=== PATIENT | male | born 1955 | race Caucasian/White ===

== ENCOUNTER 2020-09-20 20:31 | Inpatient (IN) | payer OTHER, SELFPAY ==
--- NOTE | ~2020-09-20 | XR_ITS ---
EXAMINATION: XR chest 1V portable DATE: 09/25/2020 15:47 INDICATION: Increased oxygen requirement. TECHNIQUE: A single frontal view of the chest was obtained. COMPARISON: Chest single view 09/20/2020, chest CT 09/20/2020 FINDINGS: There are lucencies in the lungs, consistent with emphysema. There is a diffuse heterogeneo us interstitial pattern in the lungs with interval improvement. No pleural effusion or pneumothorax. The heart size is normal. There are suture anchors in left humeral head. There is a total right shoul anisa arthroplasty. IMPRESSION: 1. Diffuse lung disease with interval improvement, consistent with pulmonary edema versus pneumonia s uperimposed on emphysema. Reviewed, dictated and finalized at location A. L FITTER IMPRESSION: 1. Diffuse lung disease with interval improvement, consistent with pulmonary ed erika versus pneumonia superimposed on emphysema.
--- NOTE | ~2020-09-20 | CT_ITS ---
EXAMINATION: CTA chest PE protocol DATE: 09/20/2020 23:18 INDICATION: Chest pain TECHNIQUE: Computed tomography angiography (CTA) of the chest was performed with 100 mL Omnipaque-350 intravenous contrast timed to evaluate the pulmonary arteries. Coronal maximum intensity projection 3D-reconstructions were created by the technologist. The dose-length product (DLP) was 426.60 mGy-cm. Automated exposure control and iterative reconstruction technique were employed. COMPARISON: None. FINDINGS: The pulmonary arteries are well-opacified. No pulmonary embolism is identified. There is se sylwia emphysema. There are areas of subpleural honeycombing with a lower lung zone predominance. Patch y airspace opacities are also present in the lungs. There is no pleural effusion or pneumothorax. The heart size is normal. There is mediastinal and bilateral hilar lymphadenopathy. There is moderate th oracic spondylosis. Severe lumbar spondylosis is noted. There are changes of right total shoulder art hroplasty. Suture anchors are noted in the left humeral head. IMPRESSION: 1. No pulmonary embolism. 2. Severe emphysema. 3. Chronic interstitial lung disease in a pattern of usual interstitial pneumonia in the lung bases. 4. Patchy airspace opacities of the lungs which could reflect superimposed pneumonia. 5. Mediastinal and bilateral hilar lymphadenopathy, likely reactive. Reviewed, dictated and finalized at location A. ER OPERATOR IMPRESSION: 1. No pulmonary embolism. 2. Severe emphysema. 3. Chronic interstitial lung disease in a pattern of usual interstitial pneumon ia in the lung bases. 4. Patchy airspace opacities of the lungs which could reflect superimposed pneu monia. 5. Mediastinal and bilateral hilar lymphadenopathy, likely reactive.
--- NOTE | ~2020-09-20 | XR_ITS ---
EXAMINATION: XR chest 1V portable INDICATION: Shortness of breath, COVID 19 TECHNIQUE: Portable AP chest at 2139 hours COMPARISON: 01/26/2011 FINDINGS: There are opacities of the mid and lower lung zone and the left upper lung zone. No pleural effusion or pneumothorax is identified. Lucencies in the right lung apex may reflect emphysema. The cardiomediastinal silhouette is normal. There are changes of right total shoulder arthroplasty. Sutur e anchors are noted in the left humeral head. IMPRESSION: 1. Opacities of the mid and lower lung zones and left upper lung zone consistent with pneumonia and/o r pulmonary edema.. Reviewed, dictated and finalized at location A. G MACHINE OPERATOR LUMBER IMPRESSION: 1. Opacities of the mid and lower lung zones and left upper lung zone consisten t with pneumonia and/or pulmonary edema..
--- NOTE | ~2020-09-20 | XR_ITS ---
EXAMINATION: XR chest 1V portable EXAM DATE: 09/28/2020 06:28 INDICATION: Shortness of breath. COVID pneumonia. TECHNIQUE: Portable AP frontal chest x-ray was obtained. Comparison is made to prior examination from 09/25/2020. FINDINGS: There is diffuse abnormal reticulation, partly patients extensive interstitial lung disease , however this does appear more pronounced than prior study, could be some superimposed acute infecti on. There is no pneumothorax suspected. There are no pleural effusions. Cardiomediastinal silhouette is normal. Surgical changes to both shoulders with right hip replacement and left rotator cuff repair anchors. IMPRESSION: Mild progression in abnormal reticulation likely acute infection superimposed on chronic interstitial lung disease. Reviewed, dictated and finalized at location A. SPECIAL EDUCATION TEACHER IMPRESSION: Mild progression in abnormal reticulation likely acute infection lechuga perimposed on chronic interstitial lung disease.
[2020-09-20 20:36] VITALS: BP 90/50; PULSE 103; RESP 28; TEMP 37.9; O2SAT 85
--- NOTE | 2020-09-20 20:42 | PC.NURSE ---
pt placed on 2l 02 nc which brought his o2 to 88, pt then placed on 4L o2 at 92%
[2020-09-20 20:45] VITALS: O2SAT 90
--- NOTE | 2020-09-20 20:54 | ECG_ITS ---
Measurements Intervals [place] Rate: 71 P: 18 MN: 176 QRS: 31 QRSD: 93 T: -8 QT: 497 QTc: 544 Interpretive Statements SINUS RHYTHM FREQUENT VENTRICULAR PREMATURE COMPLEXES BORDERLINE R WAVE PROGRESSION, ANTERIOR LEADS BASELINE ARTIFACT- I, III, AVL ABNORMAL ECG Electronically Signed On 09-21-2020 7:15:14 DIE REAMER by Hesham Atkins D.O.
--- NOTE | 2020-09-20 20:55 | ED.SOB ---
HPI - SOB/Dyspnea General Chief Complaint: Shortness of Breath/Dyspnea Stated Complaint: Shortness of breath, Covid-19+ Time Seen by Provider: 09/20/20 20:46 Source: patient Mode of arrival: EMS Limitations: no limitations History of Present Illness HPI Narrative: This patient is a 64 year old male former smoker with history of COPD and recent COVID positive test who presents for evaluation weakness and shortness breath. He states he developed symptoms of weakness, nausea, vomiting on 09/12/20. He was tested for covid on 09/13/20 and he was found to be positive along with other inmates. He reports continued weakness, nausea. He also reports constant headache and shortness of breath. He reports intermittent chest pain and it is worse with he tries to breath in. He states he has not been started on any medication for his treatment. MD elicited complaint: shortness of breath Related Data Allergies Allergy/AdvReac Type Severity Reaction Status Date / Time Penicillins Allergy Unknown Verified 02/12/11 16:12 Review of Systems Review of Systems: All systems reviewed & are unremarkable except as noted in HPI and below Constitutional: Constitutional: Reports chills and Reports fever(s) Cardiovascular: Cardiovascular: Reports chest pain Respiratory: Respiratory: Reports cough and Reports dyspnea Gastrointestinal: Gastrointestinal: Denies abdominal pain, Denies diarrhea, Reports nausea and Reports vomiting Neurologic: Reports headache(s) [facility] Past Medical History Medical History (Updated 09/21/20 @ 00:18 by Zaida Burns MD) COPD (chronic obstructive pulmonary disease) Diverticulitis Surgical History Surgical History (Updated 09/20/20 @ 21:01 by Zaida Burns MD) H/O colectomy Family History Family History (Updated 03/29/16 @ 23:19 by DOCTOR UNKNOWN) Father Family history of malignant neoplasm Mother Family history of diabetes mellitus in first degree relative Family history of heart disease in male family member before age 55 Social History Social History (Updated 09/20/20 @ 21:01 by Zaida Burns MD) Smoking status: Former smoker Alcohol intake: current Exam Const: General: no acute distress, alert and ill appearing Orientation/consciousness: patient oriented x3 HENMT: Head: normocephalic and atraumatic Face and sinus: face symmetric Mouth: Yes Normal oral and palatal mucosa present, Yes lip normal, Yes oropharynx normal and Yes moist mucous membranes Throat: posterior oropharynx normal Eyes: Pupils: Equal, round and reactive pupils present EOM: EOMs intact bilaterally Resp: Effort & Inspection: normal respiratory effort and no retractions Auscultation: clear to auscultation bilaterally Cardio: Rate: regular rate Rhythm: regular rhythm Heart sounds: no murmurs GI: GI Palp: Yes Soft to palpation, No Tenderness to palpation present (GI) and No Guarding due to palpation present (GI) Auscultation: normal bowel sounds Skin: General skin exam: normal color Rashes: no rashes Neuro: General: patient oriented x3 and moves all extremities Psych: Mental Status: mental status grossly normal Affect: normal affect Course Reevaluation(s) Reevaluation #1: I discussed with Dr. Thornton patient case. I discussed patient is on 7 L High flow NC without respiratory distress. I also discussed patient's BP initially in low 90s but it is now 112/81 and 103/72 after IV hydration. He seems to be responding to fluids now. I discussed admission to IMU. He states if patient able to maintain BP it is okay to admit to medical floor. They will monitor and it needs to be upgraded he will. Patient is resting comfortable sleeping with 94% Date: 09/21/20 Time: 00:12 Vital Signs Vital signs: Vital Signs Temperature 100.3 F H 09/20/20 20:36 Pulse Rate 103 H 09/20/20 20:36 Respiratory Rate 28 H 09/20/20 20:36 Blood Pressure 90/50 L 09/20/20 20:36 Pulse Oximetry 85 L 09/20/20 20:36
[2020-09-20] MEDS: ALBUTEROL SULFATE (*SP) AEROSOL 1 PUFF 6 PUFF INHALATION (21:10)
[2020-09-20] MEDS: ONDANSETRON INJ 4 MG/2 ML VIAL IV PUSH (21:14)
[2020-09-20] MEDS: SODIUM CHLORIDE 0.9% IV 1,000 ML 999 ML IV CONT ×3 (21:14→23:46)
[2020-09-20 21:23] LABS: Alveolar/Arterial O2 Gradient 160.6 mmHg; Base Excess ABG 1.3 mEq/l (+/-2.0); Device NASAL CANNULA; Fractional Inspired Oxygen 36 %; HCO3 ABG 23.7 mEq/l (22.0-26.0); Methemoglobin ABG 0.2 %THb (0-1.5); Modified Allen's Test Pass; Oxygen Content ABG 19.1 %vol (16.0-22.0); Oxyhemoglobin 90.8 % THb (90.0-100.0); PCO2 ABG 31.6 mmHg (35.0-45.0); PO2 ABG 59.4 mmHg (80.0-100.0); PO2 FiO2 Ratio Arterial Blood 1.65 %; Site Drawn RIGHT RADIAL; pH ABG 7.493 (7.350-7.450)
[2020-09-20 21:40] LABS: Basophils Percent Auto 0.3 % (0.2-1.2); Eosinophils Percent Auto 0.1 % (0-4.4); Hematocrit 42.8 % (42.0-52.0); Hemoglobin 14.8 g/dL (14.0-18.0); Immature Granulocyte Absolute 0.15 K/mm3 (0.00-0.031); Immature Granulocyte Percent A 2.2 % (0-0.5); Lymphocytes Absolute Auto 0.82 K/mm3 (0.9-3.2); Lymphocytes Percent Auto 12.1 % (18.3-44.2); Mean Corpuscular HGB Conc 34.6 g/dl (32-36); Mean Corpuscular Hemoglobin 30.6 pg (26-34); Mean Corpuscular Volume 88.4 fl (80-100); Mean Platelet Volume 9.5 fl (7.4-10.4); Monocytes Absolute Auto 0.5 K/mm3 (0.1-0.6); Monocytes Percent Auto 7.4 % (2.6-8.5); Neutrophils Absolute Auto 5.3 K/mm3 (1.3-6.7); Neutrophils Percent Auto 77.9 % (45.5-73.1); Platelet Count Result 254 k/mm3 (150-375); Red Blood Count 4.84 M/mm3 (4.6-6.20); Red Cell Distribution Width 12.2 % (11.5-14.5); White Blood Count 6.8 K/mm3 (4.5-10.0)
[2020-09-20 21:51] LABS: Prothrombin Time 13.4 Seconds (11.1-14.7)
[2020-09-20 21:52] LABS: Partial Thromboplastin Time 32.5 SECONDS (22.3-36.8)
[2020-09-20 21:55] LABS: D Dimer 1.32 ug/mL (<0.48)
[2020-09-20 21:56] LABS: Alanine Aminotransferase 15 U/L (4-50); Albumin Level 3.4 g/dL (3.5-5.1); Alkaline Phosphatase 71 U/L (38-126); Anion Gap 6 mmol/L (8-16); Aspartate Amino Transferase 39 U/L (17-59); Bilirubin,Total 0.6 mg/dL (0.2-1.3); Blood Urea Nitrogen 12 mg/dL (9-20); Carbon Dioxide 28 mmol/L (22-30); Chloride 101 mmol/L (98-107); Estimated CRCL calculation 90 ml/min; Estimated Glomerular Filt Rate > 60; Glucose 111 mg/dL (75-110); Potassium 3.6 mmol/L (3.4-5.0); Sodium 135 mmol/L (137-145)
[2020-09-20 22:04] LABS: Troponin I < 0.012 ng/mL (0.000-0.034)
[2020-09-20 22:06] VITALS: BP 102/72; PULSE 98; RESP 22; O2SAT 92
[2020-09-20 22:07] LABS: CRP 12.9 mg/dL (<1.0)
[2020-09-20 22:46] LABS: Lactic Acid Reflex 1.4 mmol/L (0.7-2.1)
[2020-09-20] MEDS: DEXAMETHASONE SOD PHOS INJ 4 MG/ML VIAL 6 MG IV PUSH (22:49)
[2020-09-20] MEDS: SODIUM CHLORIDE 0.9% IV 500 ML 999 ML IV CONT (22:49)
[2020-09-20 22:57] VITALS: O2SAT 92
[2020-09-20 23:42] VITALS: O2SAT 94
[2020-09-21] VITALS (11 sets, daily range): BP systolic 103–121; BP diastolic 72–81; PULSE 74–110; RESP 16–23; TEMP 36.2–37.2; O2SAT 85–96; BMI 26.7
[2020-09-21 00:17] LABS: Add Urine Microscopic? YES; Appearance Urine Clear (Clear); Bacteria Urine Trace /hpf; Bilirubin Urine Negative (Negative); Blood Urine 1+ (Negative); Color Urine Yellow (Yellow); Glucose Urine UA Negative (Negative); Ketones Urine 1+ mg/dL (Negative); Leukocyte Esterase Ur Negative LEU/UL (Negative); Nitrate Urine Negative (Negative); Protein Urine 2+ mg/dL (Negative); RBC Urine 0-2 /hpf (0-2); WBC Urine 0-3 /hpf
[2020-09-21 00:18] LABS: Specific Grav Ur 1.045 (1.001-1.035)
--- NOTE | 2020-09-21 00:49 | PC.NURSE ---
Attempted to call report, floor rn will call me back shortly
[2020-09-21] MEDS: SODIUM CHLORIDE 0.9% IV 1,000 ML 125 ML IV CONT ×3 (01:25→20:40)
--- NOTE | 2020-09-21 01:25 | PC.NURSE ---
This patient, Aaron Fletcher, was admitted to 3 [facility] Surg Room 327-01. Patient/family oriented to hospital policies and general routines including ID bracelet, bed and alarms, visiting hours, pain management, procedures, bathroom and other care routines, personal items, smoking policy, room service/diet, and visiting hours. Information on how to activate the Rapid Response Team has been discussed. Patient/Family are encouraged to report perceived risks to care and to ask questions if they do not understand what they are told or what they should do.
[2020-09-21] MEDS: REMDESIVIR 200 MG/NS 250 ML 200 MG/250 ML BAG 250 MG IVPB (01:49)
--- NOTE | 2020-09-21 03:28 | PM.IMHP ---
H&P: HPI History of Present Illness Date/Time: 09/21/20 03:28 Chief Complaint: shortness of breath Narrative: This is a 64 year old male with known COPD who was brought from [facility] to the ER for generalized weakness and increased shortness of breath. The patient tested postive for COVID-19 on 09/13/2020. Associated symptoms include intermittent fever, chills, nasuea, vomiting, and productive cough of blood tinged sputum. The patient was evaluated in the ER [facility] and was placed on 7L of high flow oxygen to maintain his pulse oximetry. He was also found to be hypotensive and was given 4L of NS IV bolus. CTA Chest was performed which demonstrated patchy airspace opacities of the lungs. The patient was also treated with bronchodilators, decadron and Remdesivir. On my encounter with the patient [facility] he is complaining of fatigue and shortness of breath. He denies any chest pain, nausea, abdominal pain, dysuria, hematuria, diarrhea or rectal bleeding. He did report that he hasn't had a bowel movement in almost two weeks. No other complaints. Review of Systems Review of Systems: All systems reviewed & are unremarkable except as noted in HPI and below PMFSH Past Medical History Medical History (Updated 09/21/20 @ 03:49 by Dayne Thornton MD) COPD (chronic obstructive pulmonary disease) Diverticulitis Surgical History Surgical History H/O colectomy Family History Family History Father Family history of malignant neoplasm Mother Family history of diabetes mellitus in first degree relative Family history of heart disease in male family member before age 55 Social History Social History Smoking packs per day: 1 Smoking cigarettes per day: 20.0 Years smoked: 30 Smoking pack-years: 30.00 Smoking status: Former smoker Tobacco type: cigarettes Smoking end date: 04/05/20 Alcohol intake: former Substance use: never Gender identity (if verbalized by the patient): Male Spiritual care concerns: No Meds Home Medications and Allergies Home Medications Medication Instructions Recorded Confirmed Type No Home Medications 09/21/20 09/21/20 History Allergies Allergy/AdvReac Type Severity Reaction Status Date / Time No Known Allergies Allergy Verified 09/21/20 02:16 Vital Signs Vital Signs - 24 hr 09/20/20 20:36 09/20/20 20:45 09/20/20 22:06 Temperature 37.9 C H Pulse Rate 103 H 98 Respiratory Rate 28 H 22 H Blood Pressure 90/50 L 102/72 Pulse Oximetry 85 L 90 92 09/20/20 22:57 09/20/20 23:42 09/21/20 00:06 Temperature Pulse Rate 95 Respiratory Rate 23 H Blood Pressure 112/81 Pulse Oximetry 92 94 96 09/21/20 00:45 09/21/20 01:13 09/21/20 01:25 Temperature 37.2 C 36.3 C L Pulse Rate 86 86 87 Respiratory Rate 20 19 20 Blood Pressure 106/74 103/77 121/79 Pulse Oximetry 94 93 96 09/21/20 02:00 Temperature Pulse Rate Respiratory Rate Blood Pressure Pulse Oximetry 91 Exam Const: General: cooperative, no acute distress, alert, awake, tired appearing and uncomfortable Nutritional Appearance: well nourished Orientation/consciousness: patient oriented x3 HENMT: Head: normal to inspection General nose exam: Normal external nose present Face and sinus: normal facial exam Mouth: Yes Normal oral and palatal mucosa present and Yes oropharynx normal Eyes: Pupils: Equal, round and reactive pupils present EOM: EOMs intact bilaterally Neck: Neck: supple and no JVD Thyroid: thyroid normal Lymphatic: lymphadenopathy not noted Resp: Effort & Inspection: tachypneic Auscultation: rales (bibasilar+) bilateral and diminished lung sounds Cardio: Rate: regular rate Rhythm: regular rhythm Heart sounds: no murmurs GI: Inspection: normal to inspection Auscultation: normal bowel so
[2020-09-21] MEDS: polyethylene glycoL 3350 17 GM POWD.PACK PO (05:59)
[2020-09-21] MEDS: DEXAMETHASONE SOD PHOS INJ 4 MG/ML VIAL 6 MG IV PUSH (08:40)
[2020-09-21] MEDS: ALBUTEROL SULFATE (*SP) AEROSOL 1 PUFF 6 PUFF INHALATION ×4 (08:41→20:41)
[2020-09-21 10:13] LABS: Alanine Aminotransferase 18 U/L (4-50)
--- NOTE | 2020-09-21 10:21 | PC.NURSE ---
Patient is an inmate from correctional facility. Patient's right foot and right hand are handcuffed to bed rails. Circulation checks performed by this RN. 2 armed guards outside of patient's door.
--- NOTE | 2020-09-21 12:31 | PC.NURSE ---
Parmjit Gold discussed policies with police staff. Per police protocol, they do not release handcuffs unless requested by medical staff. No telephones in room unless needed for direct care.
[2020-09-21] MEDS: REMDESIVIR 100 MG/NS 250 ML 100 MG/250 ML BAG 250 MG IVPB (20:41)
[2020-09-22] VITALS (8 sets, daily range): BP systolic 107–120; BP diastolic 70–76; PULSE 74–92; RESP 18–20; TEMP 36.5–36.8; O2SAT 90–98
[2020-09-22] MEDS: SODIUM CHLORIDE 0.9% IV 1,000 ML 125 ML IV CONT ×2 (05:13→14:25)
[2020-09-22 06:37] LABS: Basophils Percent Auto 0.3 % (0.2-1.2); Hematocrit 39.2 % (42.0-52.0); Hemoglobin 13.2 g/dL (14.0-18.0); Immature Granulocyte Absolute 0.25 K/mm3 (0.00-0.031); Immature Granulocyte Percent A 2.2 % (0-0.5); Lymphocytes Percent Auto 5.2 % (18.3-44.2); Mean Corpuscular HGB Conc 33.7 g/dl (32-36); Mean Corpuscular Hemoglobin 29.4 pg (26-34); Mean Corpuscular Volume 87.3 fl (80-100); Mean Platelet Volume 9.6 fl (7.4-10.4); Monocytes Absolute Auto 0.8 K/mm3 (0.1-0.6); Monocytes Percent Auto 6.8 % (2.6-8.5); Neutrophils Absolute Auto 9.9 K/mm3 (1.3-6.7); Neutrophils Percent Auto 85.5 % (45.5-73.1); Platelet Count Result 317 k/mm3 (150-375); Red Blood Count 4.49 M/mm3 (4.6-6.20); Red Cell Distribution Width 12.3 % (11.5-14.5); White Blood Count 11.5 K/mm3 (4.5-10.0)
[2020-09-22 06:49] LABS: Alanine Aminotransferase 15 U/L (4-50); Albumin Level 2.9 g/dL (3.5-5.1); Alkaline Phosphatase 77 U/L (38-126); Anion Gap 2 mmol/L (8-16); Aspartate Amino Transferase 33 U/L (17-59); Bilirubin,Total 0.4 mg/dL (0.2-1.3); Blood Urea Nitrogen 9 mg/dL (9-20); Carbon Dioxide 27 mmol/L (22-30); Chloride 111 mmol/L (98-107); Estimated CRCL calculation 122 ml/min; Estimated Glomerular Filt Rate > 60; Glucose 143 mg/dL (75-110); Potassium 3.8 mmol/L (3.4-5.0); Sodium 140 mmol/L (137-145)
[2020-09-22] MEDS: ALBUTEROL SULFATE (*SP) AEROSOL 1 PUFF 6 PUFF INHALATION ×2 (08:05→13:00)
[2020-09-22] MEDS: guaiFENesin/DEXTROMETHORPHAN 10 ML UDC 5 ML PO (10:15)
[2020-09-22] MEDS: DEXAMETHASONE SOD PHOS INJ 4 MG/ML VIAL 6 MG IV PUSH (10:16)
--- NOTE | 2020-09-22 17:47 | PM.IMPN ---
Progress Note: A&P Assessment and Plan (1) COPD (chronic obstructive pulmonary disease): Qualifiers: COPD type: unspecified COPD Qualified Code(s): J44.9 - Chronic obstructive pulmonary disease, unspecified Code(s): J44.9 - Chronic obstructive pulmonary disease, unspecified Status: Chronic Assessment and Plan: On systemic steroids Albuterol MDI. Continuous pulse ox. (2) Acute respiratory failure with hypoxemia: Code(s): J96.01 - Acute respiratory failure with hypoxia Status: Acute Assessment and Plan: On supplemental O2 O2 Sat in the 90's range. (3) Pneumonia due to COVID-19 virus: Code(s): U07.1 - COVID-19; J12.82 - Pneumonia due to coronavirus disease 2019 Status: Acute Assessment and Plan: Remdesivir + Dexamethasone Improved. (4) Acute dehydration: Code(s): E86.0 - Dehydration Status: Acute Assessment and Plan: Resolved (5) Nausea & vomiting: Code(s): R11.2 - Nausea with vomiting, unspecified Status: Acute Assessment and Plan: Resolved Tolerating PO Subjective Date/time seen: 09/22/20 17:47 I feel better. Review of Systems Review of Systems: Narrative: No complains. Constitutional: Comments: no chills, no fevers. Cardiovascular: Comments: no chest pain, no pnd. Respiratory: Comments: mild sob, some cough. Gastrointestinal: Comments: no n/v/abdominal pain Musculoskeletal: Comments: no muscle ache. Integumentary/Breasts: Comments: no rashes. Neurologic: Comments: no sensory motor deficit. Exam Narrative: Exam Narrative: Lying in bed. Const: General: comfortable, no acute distress, alert, awake and Physically active Nutritional Appearance: thin Orientation/consciousness: patient oriented x3 HENMT: Head: normal to inspection and normocephalic General nose exam: Normal external nose present Face and sinus: normal facial exam Eyes: General: appearance normal, both eyes and all related structures Pupils: Equal, round and reactive pupils present EOM: EOMs intact bilaterally Neck: Neck: no lymphadenopathy, supple and no JVD Resp: Effort & Inspection: able to speak in complete sentences Auscultation: clear to auscultation bilaterally Cardio: Rate: regular rate Rhythm: regular rhythm GI: GI Palp: Yes Soft to palpation and Yes No hepatosplenomegaly present Skin: Rashes: no rashes Neuro: General: patient oriented x3 Cranial nerves: Yes CN's II-XII intact bilaterally and Yes Equal, round and reactive pupils present Cognition (Neuro): normal cognition Speech: normal speech Motor exam (neuro): 5/5 motor strength present throughout Extrem: General: no pedal edema Objective Data Vital Signs Vital Signs: Vital Signs - 24 hr 09/21/20 20:00 09/22/20 00:00 09/22/20 02:51 Temperature 98.7 F 97.7 F Pulse Rate 100 82 Respiratory Rate 20 20 Blood Pressure 111/72 113/72 Pulse Oximetry 93 90 91 09/22/20 04:00 09/22/20 08:00 09/22/20 12:00 Temperature 97.8 F 98.1 F 97.9 F Pulse Rate 74 78 86 Respiratory Rate 18 20 18 Blood Pressure 112/75 120/70 114/72 Pulse Oximetry 93 90 95 09/22/20 16:00 09/22/20 16:15 Temperature 98.1 F Pulse Rate 87 Respiratory Rate 18 Blood Pressure 107/74 Pulse Oximetry 92 92 Intake/Output Intake/Output: Intake & Output 09/19/20 09/20/20 09/21/20 09/22/20 23:59 23:59 23:59 23:59 Intake Total 2600 4230 4820 Output Total 3400 2850 Balance 2600 830 1970 Meds/Results Medications: Active Medications Generic Name Dose Route Start Last Admin Trade Name Freq PRN Reason Stop Dose Admin Albuterol 6 puff 09/21/20 08:00 09/22/20 13:00 Albuterol Sulfate (*Sp) Aerosol 1 Puff INHALATION 6 puff QIDRT CLAUDIA Administration Dexamethasone Sodium Phosphate 6 mg 09/21/20 09:00 09/22/20 10:16 Dexamethasone Sod Phos Inj 4 Mg/Ml Vial IV PUSH 09/30/20 09:01 6 mg DAILY CLAUDIA Administration Guaifenesin/Dextrometh
[2020-09-22] MEDS: REMDESIVIR 100 MG/NS 250 ML 100 MG/250 ML BAG 250 MG IVPB (21:40)
[2020-09-23] VITALS (8 sets, daily range): BP systolic 112–122; BP diastolic 67–82; PULSE 61–87; RESP 18–20; TEMP 36.3–36.9; O2SAT 90–98
[2020-09-23] MEDS: SODIUM CHLORIDE 0.9% IV 1,000 ML 125 ML IV CONT ×3 (02:28→22:29)
[2020-09-23 07:22] LABS: Alanine Aminotransferase 18 U/L (4-50)
[2020-09-23] MEDS: DEXAMETHASONE SOD PHOS INJ 4 MG/ML VIAL 6 MG IV PUSH (08:02)
[2020-09-23] MEDS: guaiFENesin/DEXTROMETHORPHAN 10 ML UDC 5 ML PO (08:02)
[2020-09-23] MEDS: ALBUTEROL SULFATE (*SP) AEROSOL 1 PUFF 6 PUFF INHALATION ×4 (08:03→22:30)
[2020-09-23 10:17] LABS: Estimated CRCL calculation 122 ml/min; Estimated Glomerular Filt Rate > 60
[2020-09-23 13:37] LABS: Pneumococcal Antigen Urine Not Detected (Not Detected)
[2020-09-23] MEDS: polyethylene glycoL 3350 17 GM POWD.PACK PO (16:39)
[2020-09-23] MEDS: REMDESIVIR 100 MG/NS 250 ML 100 MG/250 ML BAG 250 MG IVPB (22:22)
[2020-09-24] VITALS (7 sets, daily range): BP systolic 105–121; BP diastolic 70–84; PULSE 56–86; RESP 18–22; TEMP 36.3–36.6; O2SAT 92–97
[2020-09-24 07:21] LABS: Estimated CRCL calculation 104 ml/min; Estimated Glomerular Filt Rate > 60
[2020-09-24 07:43] LABS: Alanine Aminotransferase 34 U/L (4-50)
[2020-09-24] MEDS: guaiFENesin/DEXTROMETHORPHAN 10 ML UDC 5 ML PO (09:08)
[2020-09-24] MEDS: SODIUM CHLORIDE 0.9% IV 1,000 ML 125 ML IV CONT ×2 (09:09→20:30)
[2020-09-24] MEDS: DEXAMETHASONE SOD PHOS INJ 4 MG/ML VIAL 6 MG IV PUSH (09:09)
[2020-09-24] MEDS: MAGNESIUM CITRATE 300 ML BTL 150 ML PO (09:09)
[2020-09-24] MEDS: ALBUTEROL SULFATE (*SP) AEROSOL 1 PUFF 6 PUFF INHALATION ×4 (09:10→20:31)
--- NOTE | 2020-09-24 15:37 | PM.IMPN ---
Progress Note: A&P Assessment and Plan (1) COPD (chronic obstructive pulmonary disease): Qualifiers: COPD type: unspecified COPD Qualified Code(s): J44.9 - Chronic obstructive pulmonary disease, unspecified Code(s): J44.9 - Chronic obstructive pulmonary disease, unspecified Status: Chronic Assessment and Plan: Improved Continue breathing treatments. (2) Acute respiratory failure with hypoxemia: Code(s): J96.01 - Acute respiratory failure with hypoxia Status: Acute Assessment and Plan: Improved Continue supplemental O2 (3) Pneumonia due to COVID-19 virus: Code(s): U07.1 - COVID-19; J12.82 - Pneumonia due to coronavirus disease 2019 Status: Acute Assessment and Plan: To complete Remdesivir (4) Acute dehydration: Code(s): E86.0 - Dehydration Status: Acute Assessment and Plan: Resolved. (5) Nausea & vomiting: Code(s): R11.2 - Nausea with vomiting, unspecified Status: Acute Assessment and Plan: Resolved Tolerating his meals. Subjective Date/time seen: 09/24/20 15:37 Patient seen on 09/23/20 late entry note. Review of Systems Review of Systems: Narrative: No new issues, states that he feels much better. Constitutional: Comments: no fevers, no rigors, no chills. Cardiovascular: Comments: no chest pain. Respiratory: Comments: sob. Gastrointestinal: Comments: no n/v/abdominal pain. Musculoskeletal: Comments: no muscle weakness. Integumentary/Breasts: Comments: no rashes. Neurologic: Comments: no sensory motor deficit. Exam Narrative: Exam Narrative: Lying in bed Const: General: comfortable, no acute distress, alert, awake and Physically active Nutritional Appearance: well nourished Orientation/consciousness: patient oriented x3 HENMT: Head: normal to inspection and normocephalic Face and sinus: normal facial exam Eyes: General: appearance normal, both eyes and all related structures Pupils: Equal, round and reactive pupils present EOM: EOMs intact bilaterally Neck: Neck: supple and no JVD Resp: Auscultation: clear to auscultation bilaterally Cardio: Rate: regular rate Rhythm: regular rhythm GI: GI Palp: Yes Soft to palpation and Yes No hepatosplenomegaly present Neuro: General: patient oriented x3 Cranial nerves: Yes CN's II-XII intact bilaterally Cognition (Neuro): normal cognition Speech: normal speech Gait exam (Neuro): Normal gait present Motor exam (neuro): 5/5 motor strength present throughout Extrem: General: no pedal edema Objective Data Vital Signs Vital Signs: Vital Signs - 24 hr 09/23/20 16:00 09/23/20 20:00 09/23/20 22:45 Temperature 97.5 F L 97.4 F L Pulse Rate 76 68 68 Respiratory Rate 20 20 Blood Pressure 112/71 122/67 Pulse Oximetry 94 98 93 09/24/20 00:00 09/24/20 04:00 09/24/20 08:00 Temperature 97.3 F L 97.4 F L Pulse Rate 77 60 Respiratory Rate 22 H 22 H Blood Pressure 105/70 114/81 Pulse Oximetry 93 96 92 09/24/20 08:05 09/24/20 12:00 Temperature 97.7 F 97.6 F Pulse Rate 56 L 75 Respiratory Rate 18 18 Blood Pressure 121/78 113/75 Pulse Oximetry 94 97 Intake/Output Intake/Output: Intake & Output 09/21/20 09/22/20 09/23/20 09/24/20 23:59 23:59 23:59 23:59 Intake Total 4480 6430 4510 1640 Output Total 3400 2850 4000 800 Balance 1080 3580 510 840 Meds/Results Medications: Active Medications Generic Name Dose Route Start Last Admin Trade Name Freq PRN Reason Stop Dose Admin Albuterol 6 puff 09/21/20 08:00 09/24/20 12:37 Albuterol Sulfate (*Sp) Aerosol 1 Puff INHALATION 6 puff QIDRT CLAUDIA Administration Dexamethasone Sodium Phosphate 6 mg 09/21/20 09:00 09/24/20 09:09 Dexamethasone Sod Phos Inj 4 Mg/Ml Vial IV PUSH 09/30/20 09:01 6 mg DAILY CLAUDIA Administration Guaifenesin/Dextromethorphan 5 ml 09/21/20 03:52 09/24/20 09:08 Guaifenesin/Dextromethorphan 10 Ml Udc PO 5 ml Q4H PRN
--- NOTE | 2020-09-24 15:46 | PM.IMPN ---
Progress Note: A&P Assessment and Plan (1) COPD (chronic obstructive pulmonary disease): Qualifiers: COPD type: unspecified COPD Qualified Code(s): J44.9 - Chronic obstructive pulmonary disease, unspecified Code(s): J44.9 - Chronic obstructive pulmonary disease, unspecified Status: Chronic Assessment and Plan: Improved Continue breathing treatments. (2) Acute respiratory failure with hypoxemia: Code(s): J96.01 - Acute respiratory failure with hypoxia Status: Acute Assessment and Plan: Improved Continue oxygen Wean off (3) Pneumonia due to COVID-19 virus: Code(s): U07.1 - COVID-19; J12.82 - Pneumonia due to coronavirus disease 2019 Status: Acute Assessment and Plan: Complete course of Remdesivir. (4) Acute dehydration: Code(s): E86.0 - Dehydration Status: Acute Assessment and Plan: Resolved (5) Nausea & vomiting: Code(s): R11.2 - Nausea with vomiting, unspecified Status: Acute Assessment and Plan: Resolved Tolerating po. Subjective Date/time seen: 09/24/20 15:46 States that he feels fine. No new issues overnight. Review of Systems Review of Systems: Narrative: No complains Constitutional: Comments: no fevers Cardiovascular: Comments: no chest pain. Respiratory: Comments: some cough. Gastrointestinal: Comments: no n/v/abdominal pain. Musculoskeletal: Comments: no muscle aches. Integumentary/Breasts: Comments: no rashes Neurologic: Comments: no sensory motor deficit. Exam Narrative: Exam Narrative: Lying in bed. Const: General: comfortable, no acute distress, alert, awake and Physically active Nutritional Appearance: well nourished Orientation/consciousness: patient oriented x3 HENMT: Head: normocephalic Ears: hearing grossly normal bilaterally Face and sinus: normal facial exam Neck: Neck: no lymphadenopathy, supple and no JVD Resp: Effort & Inspection: able to speak in complete sentences Auscultation: clear to auscultation bilaterally Cardio: Jugular venous distension: no JVD Rate: regular rate Rhythm: regular rhythm GI: GI Palp: Yes Soft to palpation and Yes No hepatosplenomegaly present Skin: Wounds: no wounds Neuro: General: patient oriented x3 and CN's II-XI intact bilaterally Cranial nerves: Yes CN's II-XII intact bilaterally Cognition (Neuro): normal cognition Speech: normal speech Motor exam (neuro): 5/5 motor strength present throughout Extrem: General: full ROM and no pedal edema Objective Data Vital Signs Vital Signs: Vital Signs - 24 hr 09/23/20 16:00 09/23/20 20:00 09/23/20 22:45 Temperature 97.5 F L 97.4 F L Pulse Rate 76 68 68 Respiratory Rate 20 20 Blood Pressure 112/71 122/67 Pulse Oximetry 94 98 93 09/24/20 00:00 09/24/20 04:00 09/24/20 08:00 Temperature 97.3 F L 97.4 F L Pulse Rate 77 60 Respiratory Rate 22 H 22 H Blood Pressure 105/70 114/81 Pulse Oximetry 93 96 92 09/24/20 08:05 09/24/20 12:00 Temperature 97.7 F 97.6 F Pulse Rate 56 L 75 Respiratory Rate 18 18 Blood Pressure 121/78 113/75 Pulse Oximetry 94 97 Intake/Output Intake/Output: Intake & Output 09/21/20 09/22/20 09/23/20 09/24/20 23:59 23:59 23:59 23:59 Intake Total 4480 6430 4510 1640 Output Total 3400 2850 4000 800 Balance 1080 3580 510 840 Meds/Results Medications: Active Medications Generic Name Dose Route Start Last Admin Trade Name Freq PRN Reason Stop Dose Admin Albuterol 6 puff 09/21/20 08:00 09/24/20 12:37 Albuterol Sulfate (*Sp) Aerosol 1 Puff INHALATION 6 puff QIDRT CLAUDIA Administration Dexamethasone Sodium Phosphate 6 mg 09/21/20 09:00 09/24/20 09:09 Dexamethasone Sod Phos Inj 4 Mg/Ml Vial IV PUSH 09/30/20 09:01 6 mg DAILY CLAUDIA Administration Guaifenesin/Dextromethorphan 5 ml 09/21/20 03:52 09/24/20 09:08 Guaifenesin/Dextromethorphan 10 Ml Udc PO 5 ml Q4H PRN Administration Cough Remdesi
[2020-09-24] MEDS: REMDESIVIR 100 MG/NS 250 ML 100 MG/250 ML BAG 250 MG IVPB (21:12)
[2020-09-25] VITALS (8 sets, daily range): BP systolic 111–130; BP diastolic 59–83; PULSE 68–90; RESP 18–20; TEMP 36.3–36.8; O2SAT 90–97
[2020-09-25] MEDS: SODIUM CHLORIDE 0.9% IV 1,000 ML 125 ML IV CONT ×3 (05:41→23:55)
[2020-09-25 06:34] LABS: Alanine Aminotransferase 41 U/L (4-50); Estimated CRCL calculation 122 ml/min; Estimated Glomerular Filt Rate > 60
[2020-09-25] MEDS: polyethylene glycoL 3350 17 GM POWD.PACK PO (06:43)
[2020-09-25] MEDS: ALBUTEROL SULFATE (*SP) AEROSOL 1 PUFF 6 PUFF INHALATION ×4 (09:08→21:09)
[2020-09-25] MEDS: DEXAMETHASONE SOD PHOS INJ 4 MG/ML VIAL 6 MG IV PUSH (09:09)
--- NOTE | 2020-09-25 14:32 | PM.IMPN ---
Progress Note: A&P Assessment and Plan (1) Pneumonia due to COVID-19 virus: Code(s): U07.1 - COVID-19; J12.82 - Pneumonia due to coronavirus disease 2019 Status: Acute Assessment and Plan: Continue Remdesivir Continue Dexamethasone Breathing treatments. Increased O2 needs Will repeat chest xr (2) COPD (chronic obstructive pulmonary disease): Qualifiers: COPD type: unspecified COPD Qualified Code(s): J44.9 - Chronic obstructive pulmonary disease, unspecified Code(s): J44.9 - Chronic obstructive pulmonary disease, unspecified Status: Chronic Assessment and Plan: Continue breathing treatments. (3) Acute respiratory failure with hypoxemia: Code(s): J96.01 - Acute respiratory failure with hypoxia Status: Acute Assessment and Plan: Worse Increased O2 needs (4) Nausea & vomiting: Code(s): R11.2 - Nausea with vomiting, unspecified Status: Acute Assessment and Plan: Resolved Tolerating po (5) Acute dehydration: Code(s): E86.0 - Dehydration Status: Acute Assessment and Plan: Resolved. Subjective Date/time seen: 09/25/20 14:32 States that feels well. Review of Systems Review of Systems: Narrative: Patient brought to the hospital due to n/v, found to have Covid pneumonia. Has had increased need of oxygen. Constitutional: Comments: no fevers, no chills ENT: Comments: no nasal congestion. Cardiovascular: Comments: no chest pain. Respiratory: Comments: Feels fatigue. Gastrointestinal: Comments: no n/v/abdominal pain. Musculoskeletal: Comments: no muscle aches. Integumentary/Breasts: Comments: no rashes Neurologic: Comments: no sensory motor deficit Exam Narrative: Exam Narrative: Lying in bed Const: General: no acute distress, alert, awake and Physically active Nutritional Appearance: well nourished Orientation/consciousness: patient oriented x3 HENMT: Head: normal to inspection and normocephalic Face and sinus: normal facial exam Eyes: General: appearance normal, both eyes and all related structures Pupils: Equal, round and reactive pupils present EOM: EOMs intact bilaterally Neck: Neck: no lymphadenopathy, supple and no JVD Resp: Auscultation: clear to auscultation bilaterally and diminished lung sounds Cardio: Jugular venous distension: no JVD Rate: regular rate Rhythm: regular rhythm GI: GI Palp: Yes Soft to palpation and Yes No hepatosplenomegaly present Skin: Lesions: no lesions Rashes: no rashes Wounds: no wounds Neuro: General: patient oriented x3 and CN's II-XI intact bilaterally Cranial nerves: Yes CN's II-XII intact bilaterally and Yes Equal, round and reactive pupils present Cognition (Neuro): normal cognition Motor exam (neuro): 5/5 motor strength present throughout Extrem: General: no pedal edema Objective Data Vital Signs Vital Signs: Vital Signs - 24 hr 09/24/20 16:10 09/24/20 20:00 09/25/20 00:00 Temperature 97.9 F 97.5 F L 97.7 F Pulse Rate 86 74 72 Respiratory Rate 20 20 20 Blood Pressure 114/84 119/70 116/76 Pulse Oximetry 95 93 92 09/25/20 04:00 09/25/20 07:02 09/25/20 08:00 Temperature 97.3 F L 97.6 F Pulse Rate 69 75 Respiratory Rate 20 18 Blood Pressure 111/81 130/81 Pulse Oximetry 92 94 92 09/25/20 12:00 09/25/20 13:35 Temperature 97.4 F L Pulse Rate 68 Respiratory Rate 18 Blood Pressure 117/83 Pulse Oximetry 95 90 Intake/Output Intake/Output: Intake & Output 09/22/20 09/23/20 09/24/20 09/25/20 23:59 23:59 23:59 23:59 Intake Total 6430 4760 4160 1930 Output Total 2850 4000 2950 1400 Balance 3580 760 1210 530 Meds/Results Medications: Active Medications Generic Name Dose Route Start Last Admin Trade Name Freq PRN Reason Stop Dose Admin Albuterol 6 puff 09/21/20 08:00 09/25/20 13:35 Albuterol Sulfate (*Sp) Aerosol 1 Puff INHALATION 6 puff QIDRT CLAUDIA Administration Dexamethasone Sodium Ph
[2020-09-25] MEDS: MAGNESIUM CITRATE 300 ML BTL 150 ML PO (21:06)
[2020-09-25] MEDS: REMDESIVIR 100 MG/NS 250 ML 100 MG/250 ML BAG 250 MG IVPB (21:07)
[2020-09-26] VITALS (9 sets, daily range): BP systolic 92–114; BP diastolic 61–78; PULSE 70–84; RESP 18–22; TEMP 36.1–36.8; O2SAT 90–96
[2020-09-26] MEDS: polyethylene glycoL 3350 17 GM POWD.PACK PO (05:35)
[2020-09-26 06:21] LABS: Estimated CRCL calculation 104 ml/min; Estimated Glomerular Filt Rate > 60
[2020-09-26] MEDS: ALBUTEROL SULFATE (*SP) AEROSOL 1 PUFF 6 PUFF INHALATION ×4 (09:04→20:30)
[2020-09-26] MEDS: SODIUM CHLORIDE 0.9% IV 1,000 ML 125 ML IV CONT ×2 (09:05→19:02)
[2020-09-26] MEDS: DEXAMETHASONE SOD PHOS INJ 4 MG/ML VIAL 6 MG IV PUSH (09:06)
[2020-09-26] MEDS: ONDANSETRON INJ 4 MG/2 ML VIAL IV PUSH (11:28)
--- NOTE | 2020-09-26 16:39 | PM.IMPN ---
Progress Note: A&P Assessment and Plan (1) Pneumonia due to COVID-19 virus: Code(s): U07.1 - COVID-19; J12.82 - Pneumonia due to coronavirus disease 2019 Status: Acute Assessment and Plan: Continue Remdesivir Continue Dexamethasone Breathing treatments. try to wean off oxygen , rpt CXr josue Am hopeful discharge tomorrow (2) COPD (chronic obstructive pulmonary disease): Qualifiers: COPD type: unspecified COPD Qualified Code(s): J44.9 - Chronic obstructive pulmonary disease, unspecified Code(s): J44.9 - Chronic obstructive pulmonary disease, unspecified Status: Chronic Assessment and Plan: Continue breathing treatments. (3) Acute respiratory failure with hypoxemia: Code(s): J96.01 - Acute respiratory failure with hypoxia Status: Acute Assessment and Plan: Pt needing oxygen (4) Nausea & vomiting: Code(s): R11.2 - Nausea with vomiting, unspecified Status: Acute Assessment and Plan: Resolved (5) Acute dehydration: Code(s): E86.0 - Dehydration Status: Acute Assessment and Plan: Resolved. Subjective Date/time seen: 09/26/20 16:39 Interval history: 64 year old male with known COPD who was brought from [facility]-term [facility] to the ER for generalized weakness and increased shortness of breath. covid positive on remdesivir and oxygen. Review of Systems Review of Systems: All systems reviewed & are unremarkable except as noted in HPI and below Exam Const: General: cooperative, comfortable, no acute distress, alert, awake, Physically active, tired appearing and uncomfortable Nutritional Appearance: well nourished and thin Orientation/consciousness: patient oriented x3 Resp: Effort & Inspection: able to speak in complete sentences GI: Inspection: normal to inspection Auscultation: normal bowel sounds Skin: General skin exam: normal color and no rashes or lesions noted Lesions: no lesions Rashes: no rashes Wounds: no wounds Neuro: General: patient oriented x3 and CN's II-XI intact bilaterally Cranial nerves: Yes CN's II-XII intact bilaterally and Yes Equal, round and reactive pupils present Cognition (Neuro): normal cognition Speech: normal speech Gait exam (Neuro): Normal gait present Motor exam (neuro): 5/5 motor strength present throughout Sensory Exam: normal sensation Extrem: General: normal to inspection, full ROM, no pedal edema and no edema Psych: Mental Status: mental status grossly normal Affect: normal affect Objective Data Vital Signs Vital Signs: Vital Signs - 24 hr 09/25/20 20:00 09/26/20 00:00 09/26/20 04:00 Temperature 36.6 C 36.3 C L 36.5 C Pulse Rate 90 76 70 Respiratory Rate 20 20 22 H Blood Pressure 117/82 102/74 107/70 Pulse Oximetry 90 91 92 09/26/20 08:00 09/26/20 12:00 09/26/20 16:00 Temperature 36.7 C 36.8 C 36.8 C Pulse Rate 78 76 83 Respiratory Rate 18 18 20 Blood Pressure 100/78 99/63 L 92/63 L Pulse Oximetry 92 90 94 09/26/20 16:02 Temperature Pulse Rate 84 Respiratory Rate 19 Blood Pressure Pulse Oximetry 93 Intake/Output Intake/Output: Intake & Output 09/23/20 09/24/20 09/25/20 09/26/20 23:59 23:59 23:59 23:59 Intake Total 4760 4160 5688 1900 Output Total 4000 2950 2900 1000 Balance 760 1210 2788 900 Meds/Results Medications: Active Medications Generic Name Dose Route Start Last Admin Trade Name Freq PRN Reason Stop Dose Admin Albuterol 6 puff 09/21/20 08:00 09/26/20 15:48 Albuterol Sulfate (*Sp) Aerosol 1 Puff INHALATION 6 puff QIDRT CLAUDIA Administration Dexamethasone Sodium Phosphate 6 mg 09/21/20 09:00 09/26/20 09:06 Dexamethasone Sod Phos Inj 4 Mg/Ml Vial IV PUSH 09/30/20 09:01 6 mg DAILY CLAUDIA Administration Guaifenesin/Dextromethorphan 5 ml 09/21/20 03:52 09/24/20 09:08 Guaifenesin/Dextromethorphan 10 Ml Udc PO 5 ml Q4H PRN Administration Cough Sodium Chloride 1,000 mls @ 125 m
[2020-09-26] MEDS: ENOXAPARIN 40 MG/0.4 ML SYRINGE SUB-Q (20:18)
[2020-09-27] VITALS (8 sets, daily range): BP systolic 99–103; BP diastolic 60–68; PULSE 60–91; RESP 18–20; TEMP 36.2–36.7; O2SAT 88–94
[2020-09-27] MEDS: SODIUM CHLORIDE 0.9% IV 1,000 ML 125 ML IV CONT (03:50)
[2020-09-27 06:47] LABS: Alanine Aminotransferase 33 U/L (4-50); Alkaline Phosphatase 67 U/L (38-126); Anion Gap 4 mmol/L (8-16); Aspartate Amino Transferase 24 U/L (17-59); Bilirubin,Total 0.6 mg/dL (0.2-1.3); Blood Urea Nitrogen 15 mg/dL (9-20); Calcium 8.1 mg/dL (8.4-10.2); Carbon Dioxide 28 mmol/L (22-30); Chloride 102 mmol/L (98-107); Estimated CRCL calculation 90 ml/min; Estimated Glomerular Filt Rate > 60; Glucose 102 mg/dL (75-110); Potassium 4.4 mmol/L (3.4-5.0); Sodium 134 mmol/L (137-145)
[2020-09-27] MEDS: ALBUTEROL SULFATE (*SP) AEROSOL 1 PUFF 6 PUFF INHALATION ×4 (08:04→20:05)
[2020-09-27] MEDS: ENOXAPARIN 40 MG/0.4 ML SYRINGE SUB-Q ×2 (08:10→20:04)
[2020-09-27] MEDS: DEXAMETHASONE SOD PHOS INJ 4 MG/ML VIAL 6 MG IV PUSH (08:10)
[2020-09-27 13:44] LABS: Alveolar/Arterial O2 Gradient 188.3 mmHg; Base Excess ABG -0.6 mEq/l (+/-2.0); Device NASAL CANNULA; Fractional Inspired Oxygen 40 %; HCO3 ABG 22.5 mEq/l (22.0-26.0); Modified Allen's Test Pass; Oxygen Content ABG 21.2 %vol (16.0-22.0); Oxygen Saturation ABG 91.9 % (95.0-100.0); Oxyhemoglobin 90.7 % THb (90.0-100.0); PCO2 ABG 33.1 mmHg (35.0-45.0); PO2 ABG 58.8 mmHg (80.0-100.0); PO2 FiO2 Ratio Arterial Blood 1.47 %; Site Drawn LEFT RADIAL; Total Hemoglobin 16.7 g/dL (12.0-18.0)
--- NOTE | 2020-09-27 15:05 | PM.CNPUL ---
Assessment and Plan Assessment and plan (1) COPD (chronic obstructive pulmonary disease): Qualifiers: COPD type: unspecified COPD Qualified Code(s): J44.9 - Chronic obstructive pulmonary disease, unspecified Code(s): J44.9 - Chronic obstructive pulmonary disease, unspecified Status: Chronic Assessment and Plan: I will start him on Spiriva 18 mcg 1 puff daily plus Symbicort 160/4.5 mcg 2 puffs b.i.d. via spacer device. He will need a home oxygen assessment prior to discharge. (2) Acute respiratory failure with hypoxemia: Code(s): J96.01 - Acute respiratory failure with hypoxia Status: Acute (3) Pneumonia due to COVID-19 virus: Code(s): U07.1 - COVID-19; J12.82 - Pneumonia due to coronavirus disease 2019 Status: Acute Assessment and Plan: Remdesivir and dexamethasone can be discontinued upon discharge. History of Present Illness History of Present Illness Consult date: 09/27/20 Chief complaint: covid pneumonia, acute respiratory failure with Narrative: 64-year-old male who was admitted to the hospital for COVID-19 pneumonia and hypoxic respiratory failure. The patient began to develop symptoms approximately 1 week prior to him turning positive which was on September 13, 2020. So hence he has had symptoms since approximately September 07. He was admitted to the hospital on September 20 with worsening symptoms and mild hypoxia requiring nasal cannula. He was treated with Remedsivir and dexamethasone and is still currently on those medications. Chest x-ray shows mild bilateral interstitial opacities with hyperinflation suggestive of his history of COPD. He has a 40-45 pack year smoking history and still smokes. The patient is currently incarcerated. He denies any significant sputum production and is starting to feel slightly better. Prior to him getting ill his only inhaler was albuterol as needed. Review of Systems Review of Systems: All systems reviewed & are unremarkable except as noted in HPI and below PMFSH Past Medical History Medical History (Updated 09/21/20 @ 03:49 by Dayne Thornton MD) COPD (chronic obstructive pulmonary disease) Diverticulitis Surgical History Surgical History H/O colectomy Family History Family History Father Family history of malignant neoplasm Mother Family history of diabetes mellitus in first degree relative Family history of heart disease in male family member before age 55 Social History Social History Smoking packs per day: 1 Smoking cigarettes per day: 20.0 Years smoked: 30 Smoking pack-years: 30.00 Smoking status: Former smoker Tobacco type: cigarettes Smoking end date: 04/05/20 Alcohol intake: former Substance use: never Gender identity (if verbalized by the patient): Male Spiritual care concerns: No Meds Home Medications and Allergies Home Medications Medication Instructions Recorded Confirmed Type No Home Medications 09/21/20 09/21/20 History Allergies Allergy/AdvReac Type Severity Reaction Status Date / Time No Known Allergies Allergy Verified 09/21/20 02:16 Vital Signs Vital Signs - 24 hr 09/26/20 16:00 09/26/20 16:02 09/26/20 17:53 Temperature 36.8 C Pulse Rate 83 84 Respiratory Rate 20 19 Blood Pressure 92/63 L Pulse Oximetry 94 93 96 09/26/20 20:00 09/26/20 23:57 09/27/20 04:00 Temperature 36.6 C 36.1 C L 36.2 C L Pulse Rate 72 75 60 Respiratory Rate 18 18 18 Blood Pressure 101/61 114/71 101/60 Pulse Oximetry 95 92 91 09/27/20 08:00 09/27/20 08:10 09/27/20 12:00 Temperature 36.7 C 36.7 C Pulse Rate 65 72 Respiratory Rate 18 18 Blood Pressure 102/64 99/60 L Pulse Oximetry 88 L 90 92 09/27/20 13:05 09/27/20 13:38 Temperature Pulse Rate Respiratory Rate Bloo
--- NOTE | 2020-09-27 15:12 | PM.IMPN ---
Progress Note: A&P Assessment and Plan (1) Pneumonia due to COVID-19 virus: Code(s): U07.1 - COVID-19; J12.82 - Pneumonia due to coronavirus disease 2019 Status: Acute Assessment and Plan: completed Remdesivir Continue Dexamethasone Breathing treatments. Continue oxygen Pt is still needing oxygen Pulmology consulted (2) COPD (chronic obstructive pulmonary disease): Qualifiers: COPD type: unspecified COPD Qualified Code(s): J44.9 - Chronic obstructive pulmonary disease, unspecified Code(s): J44.9 - Chronic obstructive pulmonary disease, unspecified Status: Chronic Assessment and Plan: Continue breathing treatments. (3) Acute respiratory failure with hypoxemia: Code(s): J96.01 - Acute respiratory failure with hypoxia Status: Acute Assessment and Plan: Pt needing oxygen (4) Nausea & vomiting: Code(s): R11.2 - Nausea with vomiting, unspecified Status: Acute Assessment and Plan: Resolved (5) Acute dehydration: Code(s): E86.0 - Dehydration Status: Acute Assessment and Plan: Resolved. Subjective Date/time seen: 09/27/20 15:12 Interval history: 64 year old male with known COPD who was brought from [facility] to the ER for generalized weakness and increased shortness of breath. covid positive on remdesivir and oxygen. Pt still needing oxygen pt to have home oxygen assessment tomorrow, unfortunately unable to keep oxygen in [facility]. pt looks better but is still needing oxygen Review of Systems Review of Systems: All systems reviewed & are unremarkable except as noted in HPI and below Exam Const: General: cooperative and healthy appearing; No in distress Nutritional Appearance: overweight Orientation/consciousness: oriented to person HENMT: Head: normal to inspection Resp: Effort & Inspection: no respiratory distress GI: Inspection: normal to inspection Neuro: General: oriented to person Objective Data Vital Signs Vital Signs: Vital Signs - 24 hr 09/26/20 16:00 09/26/20 16:02 09/26/20 17:53 Temperature 36.8 C Pulse Rate 83 84 Respiratory Rate 20 19 Blood Pressure 92/63 L Pulse Oximetry 94 93 96 09/26/20 20:00 09/26/20 23:57 09/27/20 04:00 Temperature 36.6 C 36.1 C L 36.2 C L Pulse Rate 72 75 60 Respiratory Rate 18 18 18 Blood Pressure 101/61 114/71 101/60 Pulse Oximetry 95 92 91 09/27/20 08:00 09/27/20 08:10 09/27/20 12:00 Temperature 36.7 C 36.7 C Pulse Rate 65 72 Respiratory Rate 18 18 Blood Pressure 102/64 99/60 L Pulse Oximetry 88 L 90 92 09/27/20 13:05 09/27/20 13:38 Temperature Pulse Rate Respiratory Rate Blood Pressure Pulse Oximetry 90 91 Intake/Output Intake/Output: Intake & Output 09/24/20 09/25/20 09/26/20 09/27/20 23:59 23:59 23:59 23:59 Intake Total 4160 5688 3880 2300 Output Total 2950 2900 2500 1400 Balance 1210 2788 1380 900 Meds/Results Medications: Active Medications Generic Name Dose Route Start Last Admin Trade Name Freq PRN Reason Stop Dose Admin Albuterol 6 puff 09/21/20 08:00 09/27/20 13:05 Albuterol Sulfate (*Sp) Aerosol 1 Puff INHALATION 6 puff QIDRT CLAUDIA Administration Budesonide/Formoterol Fumarate 2 puff 09/27/20 15:05 Budesonide/Form 160-4.5 Mcg (*Sp) INHALATION Q12HRT [facility] Dexamethasone Sodium Phosphate 6 mg 09/21/20 09:00 09/27/20 08:10 Dexamethasone Sod Phos Inj 4 Mg/Ml Vial IV PUSH 09/30/20 09:01 6 mg DAILY CLAUDIA Administration Enoxaparin Sodium 40 mg 09/26/20 21:00 09/27/20 08:10 Enoxaparin 40 Mg/0.4 Ml Syringe SUB-Q 40 mg Q12HR CLAUDIA Administration Guaifenesin/Dextromethorphan 5 ml 09/21/20 03:52 09/24/20 09:08 Guaifenesin/Dextromethorphan 10 Ml Udc PO 5 ml Q4H PRN Administration Cough Magnesium Citrate 150 ml 09/22/20 11:16 09/25/20 21:06 Magnesium Citrate 300 Ml Btl PO 150 ml ONCE PRN Administration Con
[2020-09-27] MEDS: polyethylene glycoL 3350 17 GM POWD.PACK PO (17:17)
[2020-09-27] MEDS: BUDESONIDE/FORMOTEROL (*SP) 160-4.5 MCG 6 GM INH 2 PUFF INHALATION (20:04)
[2020-09-27] MEDS: SALINE 0.65% NAS SOLN 44 ML BTL 1 SPRAY NASAL (21:38)
[2020-09-28] VITALS: BP 95/70; PULSE 69; RESP 18; TEMP 36.7; O2SAT 91
[2020-09-28 04:00] VITALS: BP 101/49; PULSE 63; RESP 18; TEMP 36.4; O2SAT 95
[2020-09-28 08:00] VITALS: BP 97/67; PULSE 65; RESP 20; TEMP 36.4; O2SAT 93
[2020-09-28] MEDS: BUDESONIDE/FORMOTEROL (*SP) 160-4.5 MCG 6 GM INH 2 PUFF INHALATION ×2 (10:34→20:17)
[2020-09-28] MEDS: ALBUTEROL SULFATE (*SP) AEROSOL 1 PUFF 6 PUFF INHALATION ×3 (10:34→20:17)
[2020-09-28] MEDS: ENOXAPARIN 40 MG/0.4 ML SYRINGE SUB-Q ×2 (10:36→20:16)
[2020-09-28] MEDS: DEXAMETHASONE SOD PHOS INJ 4 MG/ML VIAL 6 MG IV PUSH (10:36)
[2020-09-28] MEDS: guaiFENesin/DEXTROMETHORPHAN 10 ML UDC 5 ML PO (10:37)
--- NOTE | 2020-09-28 10:37 | PM.PNPUL ---
Progress Note: A&P Assessment and Plan (1) COPD (chronic obstructive pulmonary disease): Qualifiers: COPD type: unspecified COPD Qualified Code(s): J44.9 - Chronic obstructive pulmonary disease, unspecified Code(s): J44.9 - Chronic obstructive pulmonary disease, unspecified Status: Chronic Assessment and Plan: - continue Spiriva 18 mcg 1 puff daily - continue Symbicort 160/4.5 mcg 2 puffs Q12h via chamber device - albuterol MDI 2-4 puffs QID PRN only - home oxygen on room air today, If O2 sats are 88% or better on exertion than oxygen can be discontinued (2) Pneumonia due to COVID-19 virus: Code(s): U07.1 - COVID-19; J12.82 - Pneumonia due to coronavirus disease 2019 Status: Acute Assessment and Plan: - discontinue Remdesivir and Dexamethasone on discharge or at day 10, which ever comes first Subjective Date/time seen: 09/28/20 10:37 Interval history: Feeling well and no complaints. Oxygen can be weaned as long as sats are equal or greater to 88% on exertion and rest Review of Systems Review of Systems: All systems reviewed & are unremarkable except as noted in HPI and below Exam Const: General: cooperative, healthy appearing, comfortable, no acute distress, well developed, alert, awake and Physically active Nutritional Appearance: average body habitus and well nourished Orientation/consciousness: oriented to person, oriented to place, oriented to time and patient oriented x3 HENMT: Head: normal to inspection, normocephalic and atraumatic Eyes: General: appearance normal, both eyes and all related structures Neck: Neck: normal visual inspection, trachea midline and supple Resp: Effort & Inspection: normal respiratory effort and able to speak in complete sentences Auscultation: wheezes and diminished lung sounds Cardio: Jugular venous distension: no JVD Rate: regular rate Rhythm: regular rhythm Heart sounds: S1 normal heart sound present and S2 normal heart sound present Skin: General skin exam: normal color and no rashes or lesions noted Neuro: General: oriented to person, oriented to place, oriented to time and patient oriented x3 Extrem: General: normal to inspection and no clubbing, cyanosis or edema Psych: Appearance: grossly normal and well kempt Mental Status: mental status grossly normal Objective Data Vital Signs Vital Signs: Vital Signs - 24 hr 01/27/21 12:00 09/27/20 13:05 09/27/20 13:38 Temperature 36.7 C Pulse Rate 72 Respiratory Rate 18 Blood Pressure 99/60 L Pulse Oximetry 92 90 91 09/27/20 16:00 09/27/20 20:00 09/28/20 00:00 Temperature 36.6 C 36.4 C 36.7 C Pulse Rate 78 91 69 Respiratory Rate 18 20 18 Blood Pressure 103/68 100/62 95/70 L Pulse Oximetry 94 94 91 09/28/20 04:00 09/28/20 08:00 Temperature 36.4 C 36.4 C Pulse Rate 63 65 Respiratory Rate 18 20 Blood Pressure 101/49 L 97/67 L Pulse Oximetry 95 93 Intake/Output Intake/Output: Intake & Output 09/25/20 09/26/20 09/27/20 09/28/20 23:59 23:59 23:59 23:59 Intake Total 5688 3880 4450 490 Output Total 2900 2500 3600 800 Balance 2788 1380 850 -310 Meds/Results Medications: Active Medications Generic Name Dose Route Start Last Admin Trade Name Freq PRN Reason Stop Dose Admin Albuterol 6 puff 09/21/20 08:00 09/27/20 20:05 Albuterol Sulfate (*Sp) Aerosol 1 Puff INHALATION 6 puff QIDRT CLAUDIA Administration Budesonide/Formoterol Fumarate 2 puff 09/27/20 20:00 09/27/20 20:04 Budesonide/Formoterol (*Sp) 160-4.5 Mcg 6 Gm Inh INHALATION 2 puff Q12HRT CLAUDIA Administration Dexamethasone Sodium Phosphate 6 mg 09/21/20 09:00 09/27/20 08:10 Dexamethasone Sod Phos Inj 4 Mg/Ml Vial IV PUSH 09/30/20 09:01 6 mg DAILY CLAUDIA Administration Enoxaparin Sodium 40 mg 09/26/20 21:00 09/27/20 20:04 Enoxaparin 40 Mg/0.4 Ml Syringe SUB-Q 40 mg Q12HR CLAUDIA Administration Guaifenesin/Dextromethorphan 5 ml 09/21/20 03:52
--- NOTE | 2020-09-28 11:09 | PCNWS ---
Weekly nutritional screen. Patient is tolerating current diet of heart healthy diet with adequate intake. Diet supplements: Ensure Compact BID providing an additional 220 kcals and 9 gms protein. No further nutritional needs at this time.
[2020-09-28 12:00] VITALS: BP 106/75; PULSE 64; RESP 20; TEMP 36.5; O2SAT 95
[2020-09-28 16:00] VITALS: BP 105/80; PULSE 77; RESP 20; TEMP 36.7; O2SAT 91
[2020-09-28 20:00] VITALS: BP 99/66; PULSE 74; RESP 20; TEMP 36.4; O2SAT 91; O2SAT 94
[2020-09-29] VITALS (11 sets, daily range): BP systolic 97–104; BP diastolic 67–76; PULSE 54–110; RESP 16–20; TEMP 36.3–36.6; O2SAT 86–95
[2020-09-29] MEDS: ALBUTEROL SULFATE (*SP) AEROSOL 1 PUFF 6 PUFF INHALATION ×4 (09:32→22:10)
[2020-09-29] MEDS: BUDESONIDE/FORMOTEROL (*SP) 160-4.5 MCG 6 GM INH 2 PUFF INHALATION ×2 (09:33→22:10)
[2020-09-29] MEDS: ENOXAPARIN 40 MG/0.4 ML SYRINGE SUB-Q ×2 (09:35→22:07)
[2020-09-29] MEDS: DEXAMETHASONE SOD PHOS INJ 4 MG/ML VIAL 6 MG IV PUSH (09:35)
[2020-09-29] MEDS: guaiFENesin/DEXTROMETHORPHAN 10 ML UDC 5 ML PO (09:35)
--- NOTE | 2020-09-29 11:09 | PM.PNPUL ---
Progress Note: A&P Assessment and Plan (1) COPD (chronic obstructive pulmonary disease): Qualifiers: COPD type: unspecified COPD Qualified Code(s): J44.9 - Chronic obstructive pulmonary disease, unspecified Code(s): J44.9 - Chronic obstructive pulmonary disease, unspecified Status: Chronic Assessment and Plan: - continue Spiriva 18 mcg 1 puff daily - continue Symbicort 160/4.5 mcg 2 puffs Q12h via chamber device - albuterol MDI 2-4 puffs QID PRN only - home oxygen on room air today, If O2 sats are 88% or better on exertion than oxygen can be discontinued (2) Pneumonia due to COVID-19 virus: Code(s): U07.1 - COVID-19; J12.82 - Pneumonia due to coronavirus disease 2019 Status: Acute Assessment and Plan: - discontinue Remdesivir and Dexamethasone on discharge or at day 10, which ever comes first Subjective Date/time seen: 09/29/20 11:09 Interval history: Patient is doing well and has been weaned to room air with current oxygen saturations of 90%. From my point of view he can be discharged frome the hospital Review of Systems Review of Systems: All systems reviewed & are unremarkable except as noted in HPI and below Exam Const: General: cooperative, healthy appearing, comfortable, no acute distress, well developed, alert, awake and Physically active Nutritional Appearance: average body habitus and well nourished Orientation/consciousness: oriented to person, oriented to place, oriented to time and patient oriented x3 HENMT: Head: normal to inspection, normocephalic and atraumatic Eyes: General: appearance normal, both eyes and all related structures Neck: Neck: normal visual inspection, trachea midline and supple Resp: Effort & Inspection: normal respiratory effort and able to speak in complete sentences Auscultation: wheezes and diminished lung sounds Cardio: Jugular venous distension: no JVD Rate: regular rate Rhythm: regular rhythm Heart sounds: S1 normal heart sound present and S2 normal heart sound present Skin: General skin exam: normal color and no rashes or lesions noted Neuro: General: oriented to person, oriented to place, oriented to time and patient oriented x3 Extrem: General: normal to inspection and no clubbing, cyanosis or edema Psych: Appearance: grossly normal and well kempt Mental Status: mental status grossly normal Objective Data Vital Signs Vital Signs: Vital Signs - 24 hr 09/28/20 12:00 09/28/20 16:00 09/28/20 20:00 Temperature 36.5 C 36.7 C 36.4 C Pulse Rate 64 77 74 Respiratory Rate 20 20 20 Blood Pressure 106/75 105/80 99/66 L Pulse Oximetry 95 91 94 09/29/20 00:00 09/29/20 02:35 09/29/20 04:00 Temperature 36.6 C 36.3 C L Pulse Rate 54 L 58 L Respiratory Rate 18 20 Blood Pressure 104/73 103/68 Pulse Oximetry 92 93 95 09/29/20 04:43 09/29/20 08:00 Temperature 36.4 C Pulse Rate 65 Respiratory Rate 18 Blood Pressure 100/76 Pulse Oximetry 93 90 Intake/Output Intake/Output: Intake & Output 09/26/20 09/27/20 09/28/20 09/29/20 23:59 23:59 23:59 23:59 Intake Total 3880 4450 1820 340 Output Total 2500 3600 2325 400 Balance 1380 850 -505 -60 Meds/Results Medications: Active Medications Generic Name Dose Route Start Last Admin Trade Name Freq PRN Reason Stop Dose Admin Albuterol 6 puff 09/21/20 08:00 09/29/20 09:32 Albuterol Sulfate (*Sp) Aerosol 1 Puff INHALATION 6 puff QIDRT CLAUDIA Administration Budesonide/Formoterol Fumarate 2 puff 09/27/20 20:00 09/29/20 09:33 Budesonide/Formoterol (*Sp) 160-4.5 Mcg 6 Gm Inh INHALATION 2 puff Q12HRT CLAUDIA Administration Dexamethasone Sodium Phosphate 6 mg 09/21/20 09:00 09/29/20 09:35 Dexamethasone Sod Phos Inj 4 Mg/Ml Vial IV PUSH 09/30/20 09:01 6 mg DAILY CLAUDIA Administration Enoxaparin Sodium 40 mg 09/26/20 21:00 09/29/20 09:35 Enoxaparin 40 Mg/0.4 Ml Syringe SUB-Q 40 mg Q12HR CLAUDIA Administration Guaifenesin/Dext
--- NOTE | 2020-09-29 16:26 | PCRCNOTE ---
PT WALKED IN ROOM, DESATS ON ROOM AIR TO 86%. RN NOTIFIED.
--- NOTE | 2020-09-29 17:13 | PM.IMPN ---
Progress Note: A&P Assessment and Plan (1) Pneumonia due to COVID-19 virus: Code(s): U07.1 - COVID-19; J12.82 - Pneumonia due to coronavirus disease 2019 Status: Acute Assessment and Plan: completed Remdesivir Continue Dexamethasone Breathing treatments. Pt is off oxygen saturations are doing well, hopeful discharge back to [facility] tomorrow. (2) COPD (chronic obstructive pulmonary disease): Qualifiers: COPD type: unspecified COPD Qualified Code(s): J44.9 - Chronic obstructive pulmonary disease, unspecified Code(s): J44.9 - Chronic obstructive pulmonary disease, unspecified Status: Chronic Assessment and Plan: Continue breathing treatments. (3) Acute respiratory failure with hypoxemia: Code(s): J96.01 - Acute respiratory failure with hypoxia Status: Acute Assessment and Plan: Pt doing well off oxygen on RA. (4) Nausea & vomiting: Code(s): R11.2 - Nausea with vomiting, unspecified Status: Acute Assessment and Plan: Resolved (5) Acute dehydration: Code(s): E86.0 - Dehydration Status: Acute Assessment and Plan: Resolved. Subjective Date/time seen: 09/29/20 17:13 Interval history: 64 year old male with known COPD who [facility] for generalized weakness and increased shortness of breath. covid positive on remdesivir and oxygen. Pt doing well on RA continue to monitor off oxygen hopeful Dc josue continue prone positioning. Discussed with office guards outside the room. Review of Systems Review of Systems: All systems reviewed & are unremarkable except as noted in HPI and below Exam Const: General: cooperative, healthy appearing, comfortable, no acute distress, alert, awake, Physically active, tired appearing and uncomfortable; No in distress Nutritional Appearance: well nourished, overweight and thin Orientation/consciousness: oriented to person and patient oriented x3 Eyes: General: appearance normal, both eyes and all related structures Pupils: Equal, round and reactive pupils present EOM: EOMs intact bilaterally Neck: Neck: no lymphadenopathy, supple and no JVD Thyroid: thyroid normal Lymphatic: lymphadenopathy not noted Resp: Effort & Inspection: able to speak in complete sentences and no respiratory distress Cardio: Jugular venous distension: no JVD Rate: regular rate Rhythm: regular rhythm Heart sounds: no murmurs GI: Inspection: normal to inspection Auscultation: normal bowel sounds Skin: General skin exam: normal color and no rashes or lesions noted Lesions: no lesions Rashes: no rashes Wounds: no wounds Neuro: General: oriented to person, patient oriented x3 and CN's II-XI intact bilaterally Cranial nerves: Yes CN's II-XII intact bilaterally and Yes Equal, round and reactive pupils present Cognition (Neuro): normal cognition Speech: normal speech Gait exam (Neuro): Normal gait present Motor exam (neuro): 5/5 motor strength present throughout Sensory Exam: normal sensation Extrem: General: normal to inspection, full ROM, no pedal edema and no edema Psych: Mental Status: mental status grossly normal Affect: normal affect Objective Data Vital Signs Vital Signs: Vital Signs - 24 hr 09/28/20 20:00 09/29/20 00:00 09/29/20 02:35 Temperature 36.4 C 36.6 C Pulse Rate 74 54 L Respiratory Rate 20 18 Blood Pressure 99/66 L 104/73 Pulse Oximetry 94 92 93 09/29/20 04:00 09/29/20 04:43 09/29/20 08:00 Temperature 36.3 C L 36.4 C Pulse Rate 58 L 65 Respiratory Rate 20 18 Blood Pressure 103/68 100/76 Pulse Oximetry 95 93 90 09/29/20 16:15 09/29/20 16:20 09/29/20 16:25 Temperature Pulse Rate 80 110 H 90 Respiratory Rate Blood Pressure Pulse Oximetry 90 86 L 90 Intake/Output Intake/Output: Intake & Output 09/26/20 09/27/20 09/28/20 09/29/20 23:59 23:59 23:59 23:59 Intake Total 3880 4450 1820 340 Output Tota
[2020-09-29] MEDS: polyethylene glycoL 3350 17 GM POWD.PACK PO (22:09)
[2020-09-30 06:00] VITALS: BP 94/64; PULSE 63; RESP 18; TEMP 36.5; O2SAT 91
[2020-09-30] MEDS: DEXAMETHASONE SOD PHOS INJ 4 MG/ML VIAL 6 MG IV PUSH (09:43)
[2020-09-30] MEDS: BUDESONIDE/FORMOTEROL (*SP) 160-4.5 MCG 6 GM INH 2 PUFF INHALATION ×2 (09:44→21:37)
[2020-09-30] MEDS: ALBUTEROL SULFATE (*SP) AEROSOL 1 PUFF 6 PUFF INHALATION ×4 (09:44→21:36)
[2020-09-30] MEDS: ENOXAPARIN 40 MG/0.4 ML SYRINGE SUB-Q ×2 (09:44→21:31)
[2020-09-30 12:37] VITALS: BP 106/73; PULSE 87; RESP 20; TEMP 36.6; O2SAT 90
--- NOTE | 2020-09-30 13:15 | PM.IMPN ---
Progress Note: A&P Assessment and Plan (1) Pneumonia due to COVID-19 virus: Code(s): U07.1 - COVID-19; J12.82 - Pneumonia due to coronavirus disease 2019 Status: Acute Assessment and Plan: completed Remdesivir Continue Dexamethasone Breathing treatments. Pt is off oxygen saturations are doing well, hopeful discharge back to [facility] tomorrow. Pt to ambulate and have his oxygen levels checked. (2) COPD (chronic obstructive pulmonary disease): Qualifiers: COPD type: unspecified COPD Qualified Code(s): J44.9 - Chronic obstructive pulmonary disease, unspecified Code(s): J44.9 - Chronic obstructive pulmonary disease, unspecified Status: Chronic Assessment and Plan: Continue inhalers (3) Acute respiratory failure with hypoxemia: Code(s): J96.01 - Acute respiratory failure with hypoxia Status: Acute Assessment and Plan: Pt doing well off oxygen on RA. (4) Nausea & vomiting: Code(s): R11.2 - Nausea with vomiting, unspecified Status: Acute Assessment and Plan: Resolved (5) Acute dehydration: Code(s): E86.0 - Dehydration Status: Acute Assessment and Plan: Resolved. Subjective Date/time seen: 09/30/20 13:15 Interval history: 64 year old male with known COPD who was brought [facility] to the ER for generalized weakness and increased shortness of breath. covid positive on remdesivir and oxygen. Pt doing well on RA continue to monitor off oxygen. Discharge tomorrow. Discussed with office guards outside the room. Pt must walk in the room and to the toilet must measure saturations on ambulation. Review of Systems Review of Systems: All systems reviewed & are unremarkable except as noted in HPI and below Exam Const: General: cooperative, healthy appearing, comfortable, no acute distress, alert, awake, Physically active, tired appearing and uncomfortable; No in distress Nutritional Appearance: well nourished, overweight and thin Orientation/consciousness: oriented to person and patient oriented x3 HENMT: Head: normal to inspection Eyes: General: appearance normal, both eyes and all related structures Pupils: Equal, round and reactive pupils present EOM: EOMs intact bilaterally Neck: Neck: no lymphadenopathy, supple and no JVD Thyroid: thyroid normal Lymphatic: lymphadenopathy not noted Resp: Effort & Inspection: able to speak in complete sentences and no respiratory distress Cardio: Jugular venous distension: no JVD Rate: regular rate Rhythm: regular rhythm Heart sounds: no murmurs GI: Inspection: normal to inspection Auscultation: normal bowel sounds Skin: General skin exam: normal color and no rashes or lesions noted Lesions: no lesions Rashes: no rashes Wounds: no wounds Neuro: General: oriented to person, patient oriented x3 and CN's II-XI intact bilaterally Cranial nerves: Yes CN's II-XII intact bilaterally and Yes Equal, round and reactive pupils present Cognition (Neuro): normal cognition Speech: normal speech Gait exam (Neuro): Normal gait present Motor exam (neuro): 5/5 motor strength present throughout Sensory Exam: normal sensation Extrem: General: normal to inspection, full ROM, no pedal edema and no edema Psych: Mental Status: mental status grossly normal Affect: normal affect Objective Data Vital Signs Vital Signs: Vital Signs - 24 hr 09/29/20 14:00 09/29/20 16:15 09/29/20 16:20 Temperature 36.5 C Pulse Rate 92 80 110 H Respiratory Rate 18 Blood Pressure 103/72 Pulse Oximetry 90 90 86 L 09/29/20 16:25 09/29/20 20:00 09/29/20 22:00 Temperature 36.3 C L Pulse Rate 90 83 Respiratory Rate 16 Blood Pressure 97/67 L Pulse Oximetry 90 91 91 09/30/20 06:00 09/30/20 12:37 Temperature 36.5 C 36.6 C Pulse Rate 63 87 Respiratory Rate 18 20 Blood Pressure 94/64 L 106/73 Pulse Oximetry 91 90 Intake/Output Intake/Output: Intake & Output
--- NOTE | 2020-09-30 18:49 | PM.PNPUL ---
Progress Note: A&P Assessment and Plan (1) COPD (chronic obstructive pulmonary disease): Qualifiers: COPD type: unspecified COPD Qualified Code(s): J44.9 - Chronic obstructive pulmonary disease, unspecified Code(s): J44.9 - Chronic obstructive pulmonary disease, unspecified Status: Chronic Assessment and Plan: - continue Spiriva 18 mcg 1 puff daily - continue Symbicort 160/4.5 mcg 2 puffs Q12h via chamber device - albuterol MDI 2-4 puffs QID PRN only - on RA currently (2) Pneumonia due to COVID-19 virus: Code(s): U07.1 - COVID-19; J12.82 - Pneumonia due to coronavirus disease 2019 Status: Acute Assessment and Plan: - Completed 10 day course of Remdesivir and Dexamethsone Subjective Date/time seen: 09/30/20 18:49 Interval history: Stable oxygenation of 90-91% on RA. One reading of 86%. Not sure if this was on exertion or rest. Review of Systems Review of Systems: All systems reviewed & are unremarkable except as noted in HPI and below Objective Data Vital Signs Vital Signs: Vital Signs - 24 hr 09/29/20 20:00 09/29/20 22:00 09/30/20 06:00 Temperature 36.3 C L 36.5 C Pulse Rate 83 63 Respiratory Rate 16 18 Blood Pressure 97/67 L 94/64 L Pulse Oximetry 91 91 91 09/30/20 12:37 Temperature 36.6 C Pulse Rate 87 Respiratory Rate 20 Blood Pressure 106/73 Pulse Oximetry 90 Intake/Output Intake/Output: Intake & Output 09/27/20 09/28/20 09/29/20 09/30/20 23:59 23:59 23:59 23:59 Intake Total 4450 1820 1490 1080 Output Total 3600 2325 1200 1400 Balance 850 -505 290 -320 Meds/Results Medications: Active Medications Generic Name Dose Route Start Last Admin Trade Name Freq PRN Reason Stop Dose Admin Albuterol 6 puff 09/21/20 08:00 09/30/20 18:10 Albuterol Sulfate (*Sp) Aerosol 1 Puff INHALATION 6 puff QIDRT CLAUDIA Administration Budesonide/Formoterol Fumarate 2 puff 09/27/20 20:00 09/30/20 09:44 Budesonide/Formoterol (*Sp) 160-4.5 Mcg 6 Gm Inh INHALATION 2 puff Q12HRT CLAUDIA Administration Docusate Sodium 100 mg 09/30/20 21:00 Docusate Sodium 100 Mg Capsule PO Q12HR CLAUDIA Enoxaparin Sodium 40 mg 09/26/20 21:00 09/30/20 09:44 Enoxaparin 40 Mg/0.4 Ml Syringe SUB-Q 40 mg Q12HR CLAUDIA Administration Guaifenesin/Dextromethorphan 5 ml 09/21/20 03:52 09/29/20 09:35 Guaifenesin/Dextromethorphan 10 Ml Udc PO 5 ml Q4H PRN Administration Cough Ondansetron HCl 4 mg 09/21/20 00:18 09/26/20 11:28 Ondansetron Inj 4 Mg/2 Ml Vial IV PUSH 4 mg Q4H PRN Administration Nausea Polyethylene Glycol 17 gm 09/22/20 11:16 09/29/20 22:09 Polyethylene Glycol 3350 17 Gm Powd.Pack PO 17 gm QAM PRN Administration Constipation Polyethylene Glycol 17 gm 10/01/20 09:00 Polyethylene Glycol 3350 17 Gm Powd.Pack PO QAM CLAUDIA Sodium Chloride 1 spray 09/27/20 19:37 09/27/20 21:38 Saline 0.65% Omari Soln 44 Ml Btl NASAL 1 spray Q6HR PRN Administration Congestion Tiotropium [place] 1 cap 09/27/20 15:05 09/30/20 09:45 Tiotropium [place] 18 Mcg Cap Diskus INHALATION 1 cap QAM CLAUDIA Administration Radiology Results: ITS Impressions Chest CTA 09/20/20 23:23 IMPRESSION: 1. No pulmonary embolism. 2. Severe emphysema. 3. Chronic interstitial lung disease in a pattern of usual interstitial pneumonia in the lung bases. 4. Patchy airspace opacities of the lungs which could reflect superimposed pneumonia. 5. Mediastinal and bilateral hilar lymphadenopathy, likely reactive. Chest X-Ray 09/28/20 07:18 IMPRESSION: Mild progression in abnormal reticulation likely acute infection superimposed on chronic interstitial lung disease.
[2020-09-30 20:00] VITALS: O2SAT 88
[2020-09-30 22:00] VITALS: BP 94/65; PULSE 73; RESP 18; TEMP 36.3; O2SAT 88
[2020-10-01 06:00] VITALS: BP 105/68; PULSE 64; RESP 18; TEMP 36.4; O2SAT 91
[2020-10-01 06:42] LABS: Alanine Aminotransferase 24 U/L (4-50); Albumin Level 3.2 g/dL (3.5-5.1); Alkaline Phosphatase 87 U/L (38-126); Anion Gap 1 mmol/L (8-16); Aspartate Amino Transferase 19 U/L (17-59); Bilirubin,Total 0.8 mg/dL (0.2-1.3); Blood Urea Nitrogen 21 mg/dL (9-20); Calcium 8.5 mg/dL (8.4-10.2); Carbon Dioxide 25 mmol/L (22-30); Chloride 105 mmol/L (98-107); Estimated CRCL calculation 90 ml/min; Estimated Glomerular Filt Rate > 60; Glucose 101 mg/dL (75-110); Potassium 4.1 mmol/L (3.4-5.0); Sodium 131 mmol/L (137-145)
[2020-10-01] MEDS: BUDESONIDE/FORMOTEROL (*SP) 160-4.5 MCG 6 GM INH 2 PUFF INHALATION ×2 (08:08→23:48)
[2020-10-01] MEDS: ENOXAPARIN 40 MG/0.4 ML SYRINGE SUB-Q ×2 (08:10→23:48)
[2020-10-01] MEDS: ALBUTEROL SULFATE (*SP) AEROSOL 1 PUFF 6 PUFF INHALATION ×3 (12:22→23:48)
--- NOTE | 2020-10-01 13:20 | PM.IMPN ---
Progress Note: A&P Assessment and Plan (1) Pneumonia due to COVID-19 virus: Code(s): U07.1 - COVID-19; J12.82 - Pneumonia due to coronavirus disease 2019 Status: Acute Assessment and Plan: completed Remdesivir Continue Dexamethasone Continues to desturate into upper 80s with any exertion Cannot return to residential with oxygen Home oxygen evaluation in AM He can return to residential is he does not require supplemental oxygen D/w patient (2) COPD (chronic obstructive pulmonary disease): Qualifiers: COPD type: unspecified COPD Qualified Code(s): J44.9 - Chronic obstructive pulmonary disease, unspecified Code(s): J44.9 - Chronic obstructive pulmonary disease, unspecified Status: Chronic Assessment and Plan: Continue inhalers (3) Acute respiratory failure with hypoxemia: Code(s): J96.01 - Acute respiratory failure with hypoxia Status: Acute Assessment and Plan: Home oxygen evaluation 10/02/2020 (4) Nausea & vomiting: Code(s): R11.2 - Nausea with vomiting, unspecified Status: Acute Assessment and Plan: Resolved (5) Acute dehydration: Code(s): E86.0 - Dehydration Status: Acute Assessment and Plan: Resolved. Subjective Date/time seen: 10/01/20 13:20 Interval history: Admitted from residential with COVID-19 pneumonia. 10/01: LIRIANO present, but on R/a. Appetite good. Tired. Constipated. But feeling better overall. Review of Systems Review of Systems: All systems reviewed & are unremarkable except as noted in HPI and below Objective Data Vital Signs Vital Signs: Vital Signs - 24 hr 09/30/20 20:00 09/30/20 22:00 10/01/20 06:00 Temperature 97.4 F L 97.5 F L Pulse Rate 73 64 Respiratory Rate 18 18 Blood Pressure 94/65 L 105/68 Pulse Oximetry 88 L 88 L 91 Intake/Output Intake/Output: Intake & Output 09/28/20 09/29/20 09/30/20 10/01/20 23:59 23:59 23:59 23:59 Intake Total 1820 1490 1320 790 Output Total 2325 1200 1400 1720 Balance -505 690 -13 -984 Meds/Results Medications: Active Medications Generic Name Dose Route Start Last Admin Trade Name Freq PRN Reason Stop Dose Admin Albuterol 6 puff 09/21/20 08:00 10/01/20 12:22 Albuterol Sulfate (*Sp) Aerosol 1 Puff INHALATION 6 puff QIDRT [facility] Administration Budesonide/Formoterol Fumarate 2 puff 09/27/20 20:00 10/01/20 08:08 Budesonide/Formoterol (*Sp) 160-4.5 Mcg 6 Gm Inh INHALATION 2 puff Q12HRT [facility] Administration Docusate Sodium 100 mg 09/30/20 21:00 10/01/20 08:09 Docusate Sodium 100 Mg Capsule PO Not Given Q12HR [facility] Enoxaparin Sodium 40 mg 09/26/20 21:00 10/01/20 08:10 Enoxaparin 40 Mg/0.4 Ml Syringe SUB-Q 40 mg Q12HR [facility] Administration Guaifenesin/Dextromethorphan 5 ml 09/21/20 03:52 09/29/20 09:35 Guaifenesin/Dextromethorphan 10 Ml Udc PO 5 ml Q4H PRN Administration Cough Ondansetron HCl 4 mg 09/21/20 00:18 09/26/20 11:28 Ondansetron Inj 4 Mg/2 Ml Vial IV PUSH 4 mg Q4H PRN Administration Nausea Polyethylene Glycol 17 gm 09/22/20 11:16 09/29/20 22:09 Polyethylene Glycol 3350 17 Gm Powd.Pack PO 17 gm QAM PRN Administration Constipation Polyethylene Glycol 17 gm 10/01/20 09:00 10/01/20 08:09 Polyethylene Glycol 3350 17 Gm Powd.Pack [facility] Sodium Chloride 1 spray 09/27/20 19:37 09/27/20 21:38 Saline 0.65% Omari Soln 44 Ml Btl NASAL 1 spray Q6HR PRN Administration Congestion Tiotropium [place] 1 cap 09/27/20 15:05 10/01/20 11:13 Tiotropium [place] 18 Mcg Cap Diskus INHALATION Not [facility] Radiology Results: ITS Impressions Chest CTA 09/20/20 23:23 IMPRESSION: 1. No pulmonary embolism. 2. Severe emphysema. 3. Chronic interstitial lung disease in a pattern of usual interstitial pneumonia in the lung bases. 4. Patchy airspace opacities of the lungs which could reflect superimposed pneumoni
[2020-10-01 13:31] VITALS: BP 111/69; PULSE 67; RESP 20; TEMP 36.5; O2SAT 90
[2020-10-01 20:00] VITALS: O2SAT 92
[2020-10-01 22:00] VITALS: BP 103/67; PULSE 77; RESP 18; TEMP 36.4; O2SAT 92
[2020-10-01] MEDS: DOCUSATE SODIUM 100 MG CAPSULE PO (23:48)
[2020-10-02 05:45] VITALS: BP 90/58; PULSE 66; RESP 18; TEMP 36.4; O2SAT 92
[2020-10-02 06:51] LABS: Hematocrit 46.5 % (42.0-52.0); Hemoglobin 15.8 g/dL (14.0-18.0); Mean Corpuscular Hemoglobin 30.2 pg (26-34); Mean Corpuscular Volume 88.7 fl (80-100); Mean Platelet Volume 9.1 fl (7.4-10.4); Platelet Count Result 300 k/mm3 (150-375); Red Blood Count 5.24 M/mm3 (4.6-6.20); Red Cell Distribution Width 13.2 % (11.5-14.5); White Blood Count 13.8 K/mm3 (4.5-10.0)
[2020-10-02 07:08] LABS: Alanine Aminotransferase 24 U/L (4-50); Albumin Level 3.1 g/dL (3.5-5.1); Alkaline Phosphatase 94 U/L (38-126); Anion Gap 5 mmol/L (8-16); Aspartate Amino Transferase 24 U/L (17-59); Bilirubin,Total 0.9 mg/dL (0.2-1.3); Blood Urea Nitrogen 24 mg/dL (9-20); CRP < 0.5 mg/dL (<1.0); Calcium 8.4 mg/dL (8.4-10.2); Carbon Dioxide 25 mmol/L (22-30); Chloride 104 mmol/L (98-107); Estimated CRCL calculation 80 ml/min; Estimated Glomerular Filt Rate > 60; Glucose 83 mg/dL (75-110); Lactate Dehydrogenase 403 U/L (313-618); Sodium 134 mmol/L (137-145)
[2020-10-02 07:13] LABS: D Dimer 0.62 ug/mL (<0.48)
[2020-10-02] MEDS: DOCUSATE SODIUM 100 MG CAPSULE PO (09:02)
[2020-10-02] MEDS: ENOXAPARIN 40 MG/0.4 ML SYRINGE SUB-Q (09:02)
[2020-10-02] MEDS: SENNOSIDES 8.6 MG TABLET PO (09:02)
[2020-10-02] MEDS: BUDESONIDE/FORMOTEROL (*SP) 160-4.5 MCG 6 GM INH 2 PUFF INHALATION (09:03)
[2020-10-02] MEDS: polyethylene glycoL 3350 17 GM POWD.PACK PO (09:03)
[2020-10-02] MEDS: ALBUTEROL SULFATE (*SP) AEROSOL 1 PUFF 6 PUFF INHALATION ×2 (09:04→12:36)
[2020-10-02 09:31] VITALS: O2SAT 92
[2020-10-02 11:15] VITALS: PULSE 75; O2SAT 92
[2020-10-02 11:20] VITALS: PULSE 82; O2SAT 90
[2020-10-02 11:30] VITALS: PULSE 76; O2SAT 92
--- NOTE | 2020-10-02 12:23 | PM.DS ---
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 (4) Nausea & vomiting: Code(s): R11.2 - Nausea with vomiting, unspecified Status: Acute Assessment and Plan: Resolved (5) Acute dehydration: Code(s): E86.0 - Dehydration Status: Acute Assessment and Plan: Resolved. DS: Summary Hospital Course Hospital Course: 64 year old male with known COPD who was brought from longterm [facility] to the ER for generalized weakness and increased shortness of breath. Covid positive on remdesivir and oxygen. Pt doing well on RA continue to monitor off oxygen. Discharge soon. Discussed with office guards outside the room. Pt must walk in the room and to the toilet must measure saturations on ambulation. Home oxygen assessment prior to discharge. Pt was positive for covid on 09/13/2020 @ 18 days ago. Time Spent with Patient Time attestation: Total time spent providing and/or coordinating discharge services:40 minutes on day of dischrage Exam Const: General: comfortable, no acute distress and alert Nutritional Appearance: overweight and thin Orientation/consciousness: oriented to person and patient oriented x3 Resp: Effort & Inspection: able to speak in complete sentences and no respiratory distress Neuro: General: oriented to person, patient oriented x3 and CN's II-XI intact bilaterally Cranial nerves: Yes CN's II-XII intact bilaterally and Yes Equal, round and reactive pupils present Cognition (Neuro): normal cognition Speech: normal speech Gait exam (Neuro): Normal gait present Motor exam (neuro): 5/5 motor strength present throughout Sensory Exam: normal sensation Extrem: General: normal to inspection, full ROM, no pedal edema and no edema Psych: Mental Status: mental status grossly normal Affect: normal affect DS: Data Data Completed and Pending Labs on day of discharge: Labs from last 24 hours 10/02/20 10/02/20 10/02/20 06:43 06:43 06:43 WBC RBC Hgb Hct MCV MCH MCHC RDW Plt Count MPV D-Dimer 0.62 H Sodium 134 L Potassium 4.0 Chloride 104 Carbon Dioxide 25 Anion Gap 5 L BUN 24 H Creatinine 0.80 Estim Creat Clear Calc 80 Estimated GFR > 60 Glucose 83 Calcium 8.4 Ferritin 739.00 H Total Bilirubin 0.9 AST 24 ALT 24 Alkaline Phosphatase 94 Lactate Dehydrogenase 403 C-Reactive Protein < 0.5 Total Protein 6.0 L Albumin 3.1 L 10/02/20 06:43 WBC 13.8 H RBC 5.24 Hgb 15.8 Hct 46.5 MCV 88.7 MCH 30.2 MCHC 34.0 RDW 13.2 Plt Count 300 MPV 9.1 D-Dimer Sodium Potassium Chloride Carbon Dioxide Anion Gap BUN Creatinine Estim Creat Clear Calc Estimated GFR Glucose Calcium Ferritin Total Bilirubin AST ALT Alkaline Phosphatase Lactate Dehydrogenase C-Reactive Protein Total Protein Albumin Discharge Plan Discharge Attending physician on discharge: Stephania Max
--- NOTE | 2020-10-02 12:50 | HOMEO2EVAL ---
Home Oxygen Evaluation RC: Home Oxygen (O2) Evaluation Start: 10/02/20 07:00 Freq: ONCE Status: Active Protocol: RPE Activity Type Activity Date Activity User E-Sign Co-Sign Detail Recorded Client Recorded Date Recorded By Document 10/02/20 11:15 [email or web address] [email or web address] 10/02/20 12:50 DJO Document 10/02/20 11:20 [email or web address] [email or web address] 10/02/20 12:50 DJO Document 10/02/20 11:30 [email or web address] [email or web address] 10/02/20 12:50 DJO 10/02/20 10/02/20 10/02/20 11:15 11:20 11:30 Home O2 Evaluation Test Phase Resting Exercise Resting Oxygen Delivery Room Air Room Air Pulse Oximetry (90-100 %) 92 90 92 Pulse Rate (60-100 beats/min) 75 82 76 Treatment Charges O2 Evaluation
--- NOTE | 2020-10-02 12:51 | PCRCNOTE ---
HOME O2 EVAL COMPLETE, NO REQUIREMENTS
--- NOTE | 2020-11-11 14:37 | P.PNIM_ITS ---
Subjective Date/time seen: 09/28/2020 Objective Data Meds/Results Radiology Results: ITS Impressions Chest CTA 09/20/20 23:23 IMPRESSION: 1. No pulmonary embolism. 2. Severe emphysema. 3. Chronic interstitial lung disease in a pattern of usual interstitial pneumonia in the lung bases. 4. Patchy airspace opacities of the lungs which could reflect superimposed pn eumonia. 5. Mediastinal and bilateral hilar lymphadenopathy, likely reactive. Chest X-Ray 09/28/20 07:18 IMPRESSION: Mild progression in abnormal reticulation likely acute infection superimposed on chronic interstitial lung disease. Quality VTE Prophylaxis VTE prophylaxis: pharmacologic ordered
--- NOTE | 2020-11-13 09:36 | P.PNIM_ITS ---
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 (4) Nausea & vomiting: Code(s): R11.2 - Nausea with vomiting, unspecified Status: Acute Assessment and Plan: Resolved (5) Acute dehydration: Code(s): E86.0 - Dehydration Status: Acute Assessment and Plan: Resolved. Subjective Date/time seen: 09/28/20 Interval history: [facility]. Review of Systems Review of Systems: All systems reviewed & are unremarkable except as noted in HPI and below Exam Const: General: comfortable, no acute distress and alert Resp: Auscultation: clear to auscultation bilaterally, rales (bibasilar+) bilateral and diminished lung sounds Cardio: Jugular venous distension: no JVD Rate: regular rate Rhythm: regular rhythm Heart sounds: no murmurs GI: Inspection: normal to inspection Auscultation: normal bowel sounds Neuro: General: oriented to person, patient oriented x3 and CN's II-XI intact bilaterally Cranial nerves: Yes CN's II-XII intact bilaterally and Yes Equal, round and reactive pupils present Cognition (Neuro): normal cognition Speech: normal speech Gait exam (Neuro): Normal gait present Motor exam (neuro): 5/5 motor strength present throughout Sensory Exam: normal sensation Extrem: General: normal to inspection, full ROM, no pedal edema and no edema Psych: Mental Status: mental status grossly normal Affect: normal affect Objective Data Meds/Results Radiology Results: ITS Impressions Chest CTA 09/20/20 23:23 IMPRESSION: 1. No pulmonary embolism. 2. Severe emphysema. 3. Chronic interstitial lung disease in a pattern of usual interstitial pneumonia in the lung bases. 4. Patchy airspace opacities of the lungs which could reflect superimposed pneumonia. 5. Mediastinal and bilateral hilar lymphadenopathy, likely reactive. Chest X-Ray 09/28/20 07:18 IMPRESSION: Mild progression in abnormal reticulation likely acute infection superimposed on chronic interstitial lung disease. Quality VTE Prophylaxis VTE prophylaxis: pharmacologic ordered
== END 2020-10-02 14:06 | DRG 177 ==
LOC: ANHED 09-21 00:18 → ANH3MEDSUR 09-21 11:15
PROVIDERS: Admitting Provider Family Medicine; Emergency Provider General Practice; PCP Internal Medicine; Visit Provider Family Medicine
DX: U07.1 COVID-19 (principal); J12.82 Pneumonia due to coronavirus disease 2019; J96.01 Acute respiratory failure with hypoxia; J44.0 Chronic obstructive pulmonary disease with (acute) lower respiratory infection; E86.0 Dehydration; Z87.891 Personal history of nicotine dependence
CPT/HCPCS: 36415; 36600; 51701; 71045; 71275; 80053; 81001; 82375; 82565; 82728; 82805; 83050; 83605; 83615; 84460; 84484; 85025; 85027; 85380; 85610; 85730; 86140; 87040; 87899; 93005; 94618; 94640; 96361; 96365; 96375; 97110; 97116; 97161; 99291; A9270; J0131; J1100; J1650; J2405; J7030; J7040; Q9967